=== PATIENT | female | born 1995 | race Caucasian/White ===

== ENCOUNTER 2016-06-29 05:08 | Inpatient (IN) | payer BC, OTHER ==
[~2016-06-29] VITALS: Ht 165.1 cm; Wt 84.7 kg
[~2016-06-29 05:08] MED LIST: PRAM1AER PR; Z.0.NO CURRENT MEDS
[2016-06-29 05:10] VITALS: BP 126/84; PULSE 90; RESP 20; TEMP 98.1; O2SAT 99
[2016-06-29] MEDS ORDERED: DICY10CA12 PO (05:17)
[2016-06-29] MEDS ORDERED: SODIUM CHLOR 0.9% 1000 ML INJ 1,000 ML IV SCH (05:31)
--- NOTE | 2016-06-29 05:42 | PD ---
HPI Chief Complaint: GI Complaint Time Seen by Provider: 05:24 Travel History International Travel<30 days: No Contact w/Intl Traveler<30days: No Traveled to known affect area: No History of Present Illness HPI 31-year-old female complains of abdominal pain with nausea vomiting. Patient has intermittent right upper quadrant abdominal pain with nausea vomiting for the past several months. Patient was seen by energy audit advisor in April and had gallbladder ultrasound done April 29 which showed cholelithiasis and gallbladder wall thickening typical of cholecystitis. Patient was given dicyclomine for pain. Patient had HIDA scan done at [facility] on June 13 which shows delayed visualization of the gallbladder typical of chronic cholecystitis. Patient awaiting referral to see a surgeon. Patient states that she started having severe right upper quadrant abdominal pain with nausea vomiting the past 6 hours. Patient states the pain is sharp pain localized to right upper quadrant of the abdomen. Patient denies any pain radiation. Patient denies any fever chills. Patient states that she has intermittent nausea vomiting with the pain. Patient denies any dysuria or frequency. Patient denies any vaginal discharge or bleeding. On a scale of 1- 10 the pain is a 10. PFSH Past Medical History Diminished Hearing: No Medical other: Yes (GALLSTONES ) Musculoskeletal: Yes (SCOLIOSIS) Immunizations Current: Yes Tetanus Vaccination: < 5 Years Influenza Vaccination: Yes ?: Not LMP: 06/28/16 Past Surgical History Other Surgery: Yes (SPINAL SURGERY 10/2008) Social History Alcohol Use: Yes (RARE ) Tobacco Use: No Substance Use: No Allergies-Medications (Allergen,Severity, Reaction): Coded Allergies: Latex (Verified Allergy, Unknown, 06/29/16) Penicillin (Verified Allergy, Unknown, 06/29/16) Sulfa (Verified Allergy, Unknown, 06/29/16) Reported Meds & Prescriptions Reported Meds & Active Scripts Active Reported Dicyclomine (Dicyclomine HCl) 10 Mg Cap 10 Mg PO BID Review of Systems General / Constitutional: No: Fever Eyes: No: Visual changes HENT: No: Headaches Cardiovascular: No: Chest Pain or Discomfort Respiratory: No: Shortness of Breath Gastrointestinal: Positive: Nausea, Vomiting, Abdominal Pain Genitourinary: No: Dysuria Musculoskeletal: No: Pain Skin: No Rash Neurologic: No: Weakness Psychiatric: No: Depression Endocrine: No: Polydipsia Hematologic/Lymphatic: No: Easy Bruising Physical Exam Narrative GENERAL: Well-nourished, well-developed patient. SKIN: Warm and dry. HEAD: Normocephalic. EYES: No scleral icterus. No injection or drainage. NECK: Supple, trachea midline. No JVD or lymphadenopathy. CARDIOVASCULAR: Regular rate and rhythm without murmurs, gallops, or rubs. RESPIRATORY: Breath sounds equal bilaterally. No accessory muscle use. GASTROINTESTINAL: Abdomen soft, nondistended. Patient has moderate tenderness on palpation right upper quadrant of the abdomen. No rebound tenderness. No mass. MUSCULOSKELETAL: No cyanosis, or edema. BACK: Nontender without obvious deformity. No CVA tenderness. Neurologic exam normal. Data Data Last Documented VS Vital Signs Date Time Temp Pulse Resp B/P Pulse Ox O2 Delivery O2 Flow Rate FiO2 06/29/16 05:10 98.1 90 20 126/84 99 Orders Beta Hcg (Quant/Titer) (06/29/16 05:31) Complete Blood Count With Diff (06/29/16 05:31) Comprehensive Metabolic Panel (06/29/16 05:31) Lipase (06/29/16 05:31) Prothrombin Time / Inr (Pt) (06/29/16 05:31) Act Partial Throm Time (Ptt) (06/29/16 05:31) Urinalysis - C+S If Indicated (06/29/16 05:31) Iv Access Insert/Monitor (06/29/16 05:31) Ecg Monitoring (06/29/16 05:31) Oximetry (06/29/16 05:31) Morphine Inj (Morphine Inj) (06/29/16 05:45) Ondansetron Inj (Zofran Inj) (06/29/16 05:45) Pantoprazole Inj (Protonix Inj) (06/29/16 05:45) Sodium Chlor 0.9% 1000 Ml Inj (Ns 1000 M (06/29/16 05:31) Ed Urine Pregnancytest Poc (06/29/16 05:31) Labs Laboratory Tests Test 06/29/16 05:45 White Blood Count 11.0 TH/MM3 Red Blood Count 6.37 MIL/MM3 Hemoglobin 11.9 GM/DL Hematocrit 36.4 % Mean Corpuscular Volume 57.2 FL Mean Corpuscular Hemoglobin 18.7 PG Mean Corpuscular Hemoglobin 32.7 % Concent Red Cell Distribution Width 16.2 % Platelet Count 409 TH/MM3 Mean Platelet Volume 9.1 FL Neutrophils (%) (Auto) 89.1 % Lymphocytes (%) (Auto) 7.3 % Monocytes (%) (Auto) 3.2 % Eosinophils (%) (Auto) 0.2 % Basophils (%) (Auto) 0.2 % Neutrophils # (Auto) 9.8 TH/MM3 Lymphocytes # (Auto) 0.8 TH/MM3 Monocytes # (Auto) 0.4 TH/MM3 Eosinophils # (Auto) 0.0 TH/MM3 Basophils # (Auto) 0.0 TH/MM3 CBC Comment AUTO DIFF Differential Comment AUTO DIFF CONFIRMED Tear Drop Cells 1+ Ovalocytes 1+ Prothrombin Time 11.0 SEC Prothromb Time International 1.0 RATIO Ratio Activated Partial 27.2 SEC Thromboplast Time Sodium Level 141 MEQ/L Potassium Level 3.7 MEQ/L Chloride Level 106 MEQ/L Carbon Dioxide Level 26.4 MEQ/L Anion Gap 9 MEQ/L Blood Urea Nitrogen 10 MG/DL Creatinine 0.79 MG/DL Estimat Glomerular Filtration 91 ML/MIN Rate Random Glucose 119 MG/DL Calcium Level 8.8 MG/DL Total Bilirubin 0.3 MG/DL Aspartate Amino Transf 16 U/L (AST/SGOT) Alanine Aminotransferase 26 U/L (ALT/SGPT) Alkaline Phosphatase 98 U/L Total Protein 7.9 GM/DL Albumin 3.7 GM/DL Lipase 142 U/L Human Chorionic Gonadotropin, LESS THAN 1 Quant MIU/ML MDM Medical Decision Making Medical Screen Exam Complete: Yes Emergency Medical Condition: Yes Differential Diagnosis Differential diagnosis including acute cholecystitis, cholelithiasis, pancreatitis, PUD, colitis, UTI, pyelonephritis, nephrolithiasis. Narrative Course 21-year-old female with right upper quadrant abdominal pain and nausea vomiting. Patient had gallbladder ultrasound done which shows cholelithiasis and gallbladder wall thickening. Patient had HIDA scan done 2 weeks ago which showed delayed visualization of the gallbladder. Normal saline solution 1 25 cc an hour. Morphine 2 mg IV. Zofran 4 mg IV. Protonix 40 mg IV. Diagnosis Primary Impression: Acute cholecystitis Additional Impression: Cholelithiasis Qualified Code: K80.12 - Calculus of gallbladder with acute on chronic cholecystitis without obstruction Dwayne Cho MD Jun 29, 2016 05:42
[2016-06-29] MEDS ORDERED: MORPHINE SULFATE 4 MG/ML INJ IV PUSH ONE (05:45)
[2016-06-29] MEDS ORDERED: PANTOPRAZOLE SODIUM 40 MG VIAL IVP ONE (05:45)
[2016-06-29] MEDS ORDERED: ONDANSETRON HCL 4 MG/2 ML VIAL IVP ONE (05:45)
[2016-06-29 05:54] LABS: AUTOMATED NEUTROPHIL # 9.8 TH/MM3 (1.8-7.7); BASOPHIL % 0.2 % (0.0-2.0); EOSINOPHIL % 0.2 % (0.0-4.0); HEMATOCRIT 36.4 % (35.0-46.0); LYMPH % 7.3 % (9.0-44.0); LYMPHOCYTE # 0.8 TH/MM3 (1.0-4.8); MEAN CELL VOLUME 57.2 FL (80.0-100.0); MEAN CORPUSCULAR HEMOGLOBIN 18.7 PG (27.0-34.0); MEAN CORPUSCULAR HGB CONC 32.7 % (32.0-36.0); MONO % 3.2 % (0.0-8.0); NEUT % 89.1 % (16.0-70.0); PLATELET COUNT 409 TH/MM3 (150-450); RED BLOOD COUNT 6.37 MIL/MM3 (4.00-5.30); RED CELL DISTRIBUTION WIDTH 16.2 % (11.6-17.2)
[2016-06-29 06:10] LABS: APTT (PATIENT) 27.2 SEC (24.3-30.1)
[2016-06-29 06:11] LABS: ANION GAP 9 MEQ/L (5-15); AST (GOT) 16 U/L (15-37); BICARBONATE 26.4 MEQ/L (21.0-32.0); BLOOD UREA NITROGEN 10 MG/DL (7-18); CHLORIDE 106 MEQ/L (98-107); GLOMERULAR FILTRATION RATE 91 ML/MIN (>89); POTASSIUM 3.7 MEQ/L (3.5-5.1); SODIUM (NA) 141 MEQ/L (136-145)
[2016-06-29 06:13] LABS: HEMO FLAGS AUTO DIFF
[2016-06-29 06:15] LABS: ALKALINE PHOSPHATASE 98 U/L (45-117); ALT (GPT) 26 U/L (10-53); BETA HCG QUANT LESS THAN 1 MIU/ML (0-5); TOTAL BILIRUBIN ADULT 0.3 MG/DL (0.2-1.0)
[2016-06-29 06:25] LABS: OVALOCYTES 1+ (NORMAL); TEARDROP RBCS 1+ (NORMAL)
[2016-06-29 06:26] LABS: SCAN/DIFF AUTO DIFF CONFIRMED
[2016-06-29] MEDS ORDERED: LEVOFLOXACIN 750 MG PREMIX INJ 150 ML IV ONE (07:15)
[2016-06-29 07:30] VITALS: BP 141/92; PULSE 78; RESP 14; O2SAT 100
[2016-06-29 08:00] LABS: BLOOD, URINE LARGE (NEG); COMMENT (UR) CULT NOT INDICATED; CULTURE IF INDICATED CULT NOT INDICATED; GLUCOSE,URINE NEG (NEG); KETONE, URINE 10 mg/dL (NEG); MUCUS URINE FEW /lpf (OCC); NITRITE,URINE NEG (NEG); PH, URINE 6.5 (5.0-8.5); SQUAMOUS EPITHELIAL CELL URINE 7 /hpf (0-5); URINE COLOR YELLOW (YELLW/STRAW)
[2016-06-29 09:30] VITALS: BP 120/69; PULSE 89; RESP 16; O2SAT 98
[2016-06-29] MEDS ORDERED: SODIUM CHLORIDE 0.9% FLUSH 5 ML FLUSH IV FLUSH PRN (09:30)
[2016-06-29] MEDS ORDERED: LEVOFLOXACIN 500 MG PREMIX INJ 100 ML IV SCH (09:30)
[2016-06-29] MEDS ORDERED: MORPHINE SULFATE 4 MG/ML INJ IV PRN (09:30)
[2016-06-29] MEDS ORDERED: METOCLOPRAMIDE HCL 10 MG/2 ML VIAL IV PRN (09:30)
[2016-06-29 10:39] VITALS: BP 111/83; PULSE 77; RESP 18; TEMP 99.1; O2SAT 98
[2016-06-29] MEDS ORDERED: PROPOFOL 200 MG/20 ML AMP IV ONE (11:59)
[2016-06-29] MEDS ORDERED: LACTATED RINGER'S 1000 ML INJ 1,000 ML IV ONE (11:59)
[2016-06-29] MEDS ORDERED: NEOSTIGMINE 3 MG/3 ML SYR IV ONE (11:59)
[2016-06-29] MEDS ORDERED: ONDANSETRON HCL 4 MG/2 ML VIAL IV PUSH ONE (11:59)
[2016-06-29 12:00] VITALS: BP 111/83; PULSE 77; RESP 18; TEMP 99.1; O2SAT 98
[2016-06-29] MEDS ORDERED: DICLOFENAC SODIUM 37.5 MG/ML VIAL IV PUSH ONE (12:40)
[2016-06-29] MEDS ORDERED: MIDAZOLAM HCL 2 MG/2 ML VIAL ONE (12:40)
[2016-06-29] MEDS ORDERED: fentaNYL CITRATE 250 MCG/5 ML AMP ONE (12:41)
[2016-06-29] MEDS ORDERED: ACETAMINOPHEN 1000 MG/100 ML VIAL IV ONE (12:41)
[2016-06-29] MEDS ORDERED: BUPIVACAINE/EPINEPHRINE 0.25% PF 30 ML VIAL ONE (13:36)
--- NOTE | 2016-06-29 14:25 | HHI.PR ---
cc: Guido Chávez MD Immediate Post Op Note Procedure Date: Jun 29, 2016 Pre Op Diagnosis: (1) Acute cholecystitis (2) Cholelithiasis (3) RUQ pain (4) Abnormal gallbladder ultrasound (5) Abnormal gall bladder diagnostic imaging Post Op Diagnosis: (1) Acute cholecystitis (2) Cholelithiasis (3) RUQ pain (4) Abnormal gallbladder ultrasound (5) Abnormal gall bladder diagnostic imaging Surgeon: Guido Chávez Fiberline Supervisor(s): Please refer to OR record Procedure: Laparoscopic cholecystectomy Findings: Fairly inflamed gallbladder Complications: None Specimen(s) removed: Gallbladder Anesthesia: General Drains: None IVF Patient to: PACU Patient Condition: Good Implant/Devices: SEE IMPLANT LOG (if applicable) Date/Time of Procedure: SEE SURGICAL CARE RECORD Guido Chávez MD Jun 29, 2016 14:25
[2016-06-29] MEDS ORDERED: NORC5TAB PO (14:29)
[2016-06-29] MEDS ORDERED: DO NOT ADM ANY ANTICOAGULANT DRUGS XX PRN (14:32)
[2016-06-29] MEDS ORDERED: *MEPERIDINE 25 MG INJ VIAL PERIprocedural Use ONLY ONE (14:34)
[2016-06-29 16:00] VITALS: BP 121/77; PULSE 85; RESP 17; TEMP 97.7; O2SAT 97
[2016-06-29] MEDS ORDERED: DICYCLOMINE HCL 10 MG CAP PO SCH (21:00)
[2016-06-29] MEDS ORDERED: SODIUM CHLORIDE 0.9% FLUSH 5 ML FLUSH IV FLUSH SCH (21:00)
--- NOTE | 2016-06-30 05:44 | MH ---
cc: YISSEL CHÁVEZ M.D. DATE OF ADMISSION: 06/29/2016 REASON FOR ADMISSION Right upper quadrant pain, nausea, vomiting. Ultrasound shows stones, HIDA scan which was of abnormal, all done as an outpatient. HISTORY This is a pleasant 21-year-old student who is going to [email or web address] in [place]. She had experienced some right upper quadrant pain, nausea, had an ultrasound done a few weeks back which showed inflamed gallbladder. She then saw a edge blacker who ordered a HIDA scan which was abnormal. They were not sure what was happening and then she progressively got worse and she drove to [facility] back home and came to the emergency room for medical care. Dr. Osuna called me after his evaluation and looking at an outpatient images and all her clinical condition was consistent with acute cholecystitis on top of chronic that had been going on. PAST HISTORY Negative for any chronic medical problems. ALLERGIES LATEX. PENICILLIN. SULFA. REVIEW OF SYSTEMS No chronic pulmonary or cardiac problems. She does have scoliosis. She does not take any routine medications. PHYSICAL EXAMINATION NECK: Supple. CHEST: Clear. HEART: Regular rate. ABDOMEN: Slightly obese, soft. Exquisite tenderness with Lewis's sign. No surgical scars. No masses are appreciated. She is definitely tender in the right upper quadrant. EXTREMITIES: Moves all extremities. No clubbing, cyanosis or edema. NEUROLOGIC: She is alert and oriented x 3, without focal deficits. LABORATORY DATA White count 8, H&H 11 and 36. Coags normal. Chemistry with LFTs all normal. Beta hCG negative. IMAGING STUDIES I have looked at the outpatient reports. Ultrasound done at [facility] in [place] showed inflamed gallbladder and gallstones. HIDA scan done at the [facility] here showed abnormal emptying. ASSESSMENT A 21-year-old female with signs and symptomatology and radiologic imaging consistent with biliary colic, acute cholecystitis. PLAN Laparoscopic cholecystectomy. This was explained to the patient and her family who were there and they all appear to understand. We will proceed. Yissel Chávez MD JBRYAN/FREDERICK /10:43 PM /5:36 AM
[2016-06-30] MEDS ORDERED: PANTOPRAZOLE SODIUM 40 MG VIAL IV SCH (09:00)
--- NOTE | 2016-07-03 09:21 | MP ---
cc: YISSEL CHÁVEZ M.D. DATE OF SURGERY 06/29/2016 PREOPERATIVE DIAGNOSIS Cholelithiasis, cholecystitis POSTOPERATIVE DIAGNOSIS Cholelithiasis, cholecystitis PROCEDURE Laparoscopic cholecystectomy ANESTHESIA General SURGEON Dr. Chávez INDICATIONS This is a pleasant 21-year female who had signs and symptomatology and imaging studies all consistent with biliary colic. Plans were made for above. PROCEDURE The patient was taken to the operating room, placed in the supine position. After anesthesia, her abdomen was prepped with Betadine. We made an incision just below the umbilicus. A Veress needle inserted. Saline load test performed. The abdomen was insufflated with 15 mmHg. The gallbladder was grasped superiorly and laterally identifying the cystic duct, cystic artery both of which were doubly ligated. The gallbladder was moderately inflamed. We did place two other working ports, one below the xyphoid and one in between the two previously placed ports. After dissecting out the gallbladder, we placed an EndoCatch, pulled out the umbilical incision which must be elongated because the size the gallbladder. We checked the dissection sites. There was excellent hemostasis without biliary leakage. The trocars were then removed. The irrigating solution was removed. The umbilical port sites closed with a 0 Vicryl at the fascial layer. Skin is closed with 4-0 Vicryl at all three sites. The patient tolerated the procedure well, had no immediate postop complications. MD SARA London/ALEAH /10:46 PM /9:17 AM
== END 2016-06-29 16:50 | disposition home or self-care (01) | DRG 419 ==
LOC: NEPE 05:08 → NEDA 07:16 → N07A 10:35
PROVIDERS: ADMIT Surgery; ATTEND Surgery
PROC: 0FT44ZZ Resection of Gallbladder, Percutaneous Endoscopic Approach (ICD-10-PCS; principal; 2016-06-29 13:19)
DX: K80.12 Calculus of gallbladder with acute and chronic cholecystitis without obstruction (principal); M41.9 Scoliosis, unspecified; Z88.0 Allergy status to penicillin; Z88.2 Allergy status to sulfonamides; Z91.040 Latex allergy status
CPT/HCPCS: 80053; 81001; 83690; 84702; 84703; 85025; 85610; 85730; 88304; 96361; 96374; 96375; C9113; J0131; J1130; J1956; J2175; J2250; J2270; J2405; J2710; J2765; J3010; J7030; J7120

== ENCOUNTER 2018-03-10 12:58 | Inpatient (IN) ==
[2018-03-10] MEDS ORDERED: Sod Chloride 0.9% Inj 1,000 ML IV.SIG ONE (13:18)
[2018-03-10 13:57] LABS: Baso % (Auto) 0.1 % (0.0-2.0); Eos # (Auto) 0.3 th/mm3 (0.0-0.4); Hematocrit 37.5 % (35.0-46.0); Lymph # (Auto) 1.6 th/mm3 (1.0-4.8); Lymph % (Auto) 6.2 % (9.0-44.0); Mean Corpuscular HGB Conc 32.1 % (32.0-36.0); Mean Corpuscular Hemoglobin 18.8 pg (27.0-34.0); Mean Corpuscular Volume 58.4 fL (80.0-100.0); Mean Platelet Volume 8.3 fL (7.0-11.0); Mono # (Auto) 1.8 th/mm3 (0.0-0.9); Mono % (Auto) 6.6 % (0.0-8.0); Neut % (Auto) 86.1 % (16.0-70.0); Platelet Count 527 th/mm3 (150-450); Red Blood Count 6.42 mil/mm3 (4.00-5.30); Red Cell Distribution Width 16.3 % (11.6-17.2); White Blood Count 26.7 th/mm3 (4.0-11.0)
--- NOTE | 2018-03-10 13:59 | ED ---
HPI General Chief complaint: Nausea/Vomiting/Diarrhea Stated complaint: Abd pain/Vomiting Time Seen by Provider: 03/10/18 13:14 Source: patient Mode of arrival: ambulatory Limitations: no limitations History of Present Illness HPI Narrative: The patient is 22 years old and arrives to the ER with complaint of nausea vomiting and abdominal pain. She has had abdominal pain for about 3 weeks now. It radiates to the region of left flank. She reports pain and vomiting became constant and severe this morning. She had been following with the primary doctor in [facility] and blood work was done. She is yet to be informed about the results. She denies hematuria. No similar prior episodes. No abnormal vaginal bleeding or discharge. MD complaint: Reports nausea, vomiting and abdominal pain Associated Abdominal Pain: Yes Location of pain: Reports LUQ, LLQ and left flank Severity: moderate Related Data Home Medications Medication Instructions Recorded Confirmed No Known Home Medications 03/10/18 03/10/18 Allergies Allergy/AdvReac Type Severity Reaction Status Date / Time latex Allergy Unknown UNKNOWN Unverified 03/10/18 16:52 penicillin G Allergy Unknown UNKNOWN Unverified 03/10/18 16:52 Sulfa (Sulfonamide Allergy Unknown UNKNOWN Unverified 03/10/18 16:52 Antibiotics) Review of Systems ROS: all other systems reviewed are negative PMFSH Social History Social History Substance History: No History of Abuse Second Hand Smoke Exposure: No Smoking Status: Never smoker How Often Do You Have a Drink Containing Alcohol: 2 to 4 times a month Hx Recent Travel: No [facility] within the Last 8 Weeks: No Recent Out of Country Travel within the Last 8 Weeks: No Exam Narrative Exam Narrative: GENERAL: 22-year-old female pleasant well-nourished well- developed mild to moderate distress secondary to pain SKIN: Focused skin assessment warm/dry. HEAD: Atraumatic. Normocephalic. EYES: Pupils equal and round. No scleral icterus. No injection or drainage. ENT: No nasal bleeding or discharge. Mucous membranes pink and moist. NECK: Trachea midline. No JVD. CARDIOVASCULAR: Regular rate and rhythm. No murmur appreciated. RESPIRATORY: No accessory muscle use. Clear to auscultation. Breath sounds equal bilaterally. GASTROINTESTINAL: Tenderness palpation left abdomen. No flank tenderness. Soft. MUSCULOSKELETAL: No obvious deformities. No clubbing. No cyanosis. No edema. NEUROLOGICAL: Awake and alert. No obvious cranial nerve deficits. Motor grossly within normal limits. Normal speech. PSYCHIATRIC: Appropriate mood and affect; insight and judgment normal. Course Initial Documented Vital Signs Temperature 98.2 F 03/10/18 13:02 Pulse Rate 118 H 03/10/18 13:02 Respiratory Rate 20 03/10/18 13:02 Blood Pressure 156/106 H 03/10/18 13:02 Pulse Oximetry 98 03/10/18 13:02 Last Documented Vital Signs Temperature 98.5 F 03/12/18 12:00 Pulse Rate 79 03/12/18 12:00 Respiratory Rate 16 03/12/18 12:00 Blood Pressure 120/64 03/12/18 12:00 Pulse Oximetry 97 03/12/18 12:00 Medical Decision Making MDM Narrative Medical decision making narrative: Patient has been in the ER for about 3-1/2 hours. She describes continuous pain after morphine and Dilaudid. Persistent nausea is reported after Zofran twice. Workup reveals a leukocytosis of 27,000 atypical for this patient who has had multiple normal prior white blood cell counts. WBCs in urine along with moderate leukocyte esterase could be considered cystitis. Subclinical diverticulitis may also be concerned. There was a large amount of stool on outside imaging from 2 days ago. Cipro Flagyl started. IV fluids started. Call placed to hospitalist service. Medical Screen Exam Complete: Yes Emergency Medical Condition: Yes Differential Diagnosis Differential Diagnosis: Constipation, Gastritis, Acute Cholecystitis, Biliary Colic, Pancreatitis, STEWART, Hepatitis, Bowel Obstruction, Cystitis, Mesenteric Ischemia, AAA, Appendicitis, Renal Stone/Hydronephrosis, GERD, perforated viscous Medical Records Medical records reviewed: Yes I reviewed the patient's medical records. Lab Data Lab results reviewed: Yes I reviewed the patient's lab results. Lab results narrative: LFTs essentially unremarkable Urinalysis shows occasional WBCs with moderate leukocyte esterase [id number] negative Result diagrams: 03/12/18 09:22 03/12/18 09:22 POC Results POC Urine Results Negative Lab Results 03/10/18 03/10/18 03/10/18 Range/Units 13:45 13:45 14:50 WBC 26.7 H (4.0-11.0) th/mm3 RBC 6.42 H (4.00-5.30) mil/mm3 Hgb 12.0 (11.6-15.3) gm/dL Hct 37.5 (35.0-46.0) % MCV 58.4 L (80.0-100.0) fL MCH 18.8 L (27.0-34.0) pg MCHC 32.1 (32.0-36.0) % RDW 16.3 (11.6-17.2) % Plt Count 527 H D (150-450) th/mm3 MPV 8.3 (7.0-11.0) fL Neut % (Auto) 86.1 H (16.0-70.0) % Lymph % (Auto) 6.2 L (9.0-44.0) % [place] % (Auto) 6.6 (0.0-8.0) % Eos % (Auto) 1.0 (0.0-4.0) % Baso % (Auto) 0.1 (0.0-2.0) % Neut # (Auto) 23.0 H (1.8-7.7) th/mm3 Lymph # (Auto) 1.6 (1.0-4.8) th/mm3 [place] # (Auto) 1.8 H (0.0-0.9) th/mm3 Eos # (Auto) 0.3 (0.0-0.4) th/mm3 Baso # (Auto) 0.0 (0.0-0.2) th/mm3 WBC Differential . Differential Comment Auto diff final Sodium 144 (136-145) meq/L Potassium 3.8 (3.5-5.1) meq/L Chloride 105 (98-107) meq/L Carbon Dioxide 29.7 (21.0-32.0) meq/L Anion Gap 9 (5-15) meq/L BUN 12 (7-18) mg/dL Creatinine 0.73 (0.50-1.00) mg/dL Estimated GFR Greater than 89 (>89) mL/min Random Glucose 120 H (74-106) mg/dL Calcium 8.8 (8.5-10.1) mg/dL Magnesium (1.5-2.5) mg/dL Total Bilirubin 0.8 (0.2-1.0) mg/dL Direct Bilirubin 0.2 (0.0-0.2) mg/dL Indirect Bilirubin 0.6 (0.0-0.8) mg/dL AST 31 (15-37) U/L ALT 41 (10-53) U/L Alkaline Phosphatase 109 (45-117) U/L Total Protein 8.0 (6.4-8.2) g/dL Albumin 3.9 (3.4-5.0) g/dL Lipase 106 (73-393) U/L Urine Color Yellow (Yellw/Straw) Urine Clarity Cloudy H (Clear) Urine pH 5.0 (5.0-8.5) Ur Specific [place] 1.026 (1.002-1.035) Urine Protein Negative (Neg-Trace) mg/dL Urine Glucose (UA) Negative (Negative) mg/dL Urine Ketones Negative (Negative) mg/dL Urine Occult Blood Negative (Negative) Urine Nitrate Negative (Negative) Urine Bilirubin Negative (Negative) Urine Urobilinogen Less than 2 (Less than 2) mg/dL Ur Leukocyte Esterase Moderate H (Negative) Urine RBC 3 (0-3) /hpf Urine WBC 8 H (0-5) /hpf Ur Squamous Epith Cells 5 (0-5) /hpf Calcium Oxalate Crystal Rare H (None) /hpf Amorphous Sediment Rare H (None) /hpf Urine Bacteria Occasional H (None) /hpf Hyaline Casts 1 (0-3) /lpf Urine Mucus Moderate H (Occasional) /lpf Ur Microscopic Review Not Reportable Stl C.difficile DNA Amp (Negative) St C. diff Tox Epid 027 (Negative) 03/11/18 03/11/18 03/11/18 Range/Units 01:18 06:15 06:15 WBC 12.2 H D (4.0-11.0) th/mm3 RBC 5.64 H (4.00-5.30) mil/mm3 Hgb 10.5 L (11.6-15.3) gm/dL Hct 32.8 L (35.0-46.0) % MCV 58.3 L (80.0-100.0) fL MCH 18.6 L (27.0-34.0) pg MCHC 32.0 (32.0-36.0) % RDW 15.6 (11.6-17.2) % Plt Count 398 (150-450) th/mm3 MPV 8.5 (7.0-11.0) fL Neut % (Auto) 82.3 H (16.0-70.0) % Lymph % (Auto) 9.5 (9.0-44.0) % [place] % (Auto) 7.9 (0.0-8.0) % Eos % (Auto) 0.1 (0.0-4.0) % Baso % (Auto) 0.2 (0.0-2.0) % Neut # (Auto) 10.0 H (1.8-7.7) th/mm3 Lymph # (Auto) 1.2 (1.0-4.8) th/mm3 [place] # (Auto) 1.0 H (0.0-0.9) th/mm3 Eos # (Auto) 0.0 (0.0-0.4) th/mm3 Baso # (Auto) 0.0 (0.0-0.2) th/mm3 WBC Differential . Differential Comment Auto diff final Sodium 140 (136-145) meq/L Potassium 3.3 L (3.5-5.1) meq/L Chloride 106 (98-107) meq/L Carbon Dioxide 26.8 (21.0-32.0) meq/L Anion Gap 7 (5-15) meq/L BUN 8 (7-18) mg/dL Creatinine 0.62 (0.50-1.00) mg/dL Estimated GFR Greater than 89 (>89) mL/min Random Glucose 92 (74-106) mg/dL Calcium 8.1 L (8.5-10.1) mg/dL Magnesium (1.5-2.5) mg/dL Total Bilirubin 0.9 (0.2-1.0) mg/dL Direct Bilirubin (0.0-0.2) mg/dL Indirect Bilirubin (0.0-0.8) mg/dL AST 27 (15-37) U/L ALT 36 (10-53) U/L Alkaline Phosphatase 80 (45-117) U/L Total Protein 6.6 D (6.4-8.2) g/dL Albumin 3.0 L D (3.4-5.0) g/dL Lipase 65 L (73-393) U/L Urine Color (Yellw/Straw) Urine Clarity (Clear) Urine pH (5.0-8.5) Ur Specific [place] (1.002-1.035) Urine Protein (Neg-Trace) mg/dL Urine Glucose (UA) (Negative) mg/dL Urine Ketones (Negative) mg/dL Urine Occult Blood (Negative) Urine Nitrate (Negative) Urine Bilirubin (Negative) Urine Urobilinogen (Less than 2) mg/dL Ur Leukocyte Esterase (Negative) Urine RBC (0-3) /hpf Urine WBC (0-5) /hpf Ur Squamous Epith Cells (0-5) /hpf Calcium Oxalate Crystal (None) /hpf Amorphous Sediment (None) /hpf Urine Bacteria (None) /hpf Hyaline Casts (0-3) /lpf Urine Mucus (Occasional) /lpf Ur Microscopic Review Stl C.difficile DNA Amp Negative (Negative) St C. diff Tox Epid 027 Negative (Negative) 03/11/18 03/12/18 03/12/18 Range/Units 06:15 09:22 09:22 WBC 7.6 (4.0-11.0) th/mm3 RBC 5.45 H (4.00-5.30) mil/mm3 Hgb 10.1 L (11.6-15.3) gm/dL Hct 31.7 L (35.0-46.0) % MCV 58.1 L (80.0-100.0) fL MCH 18.6 L (27.0-34.0) pg MCHC 32.0 (32.0-36.0) % RDW 15.8 (11.6-17.2) % Plt Count 365 (150-450) th/mm3 MPV 8.3 (7.0-11.0) fL Neut % (Auto) 53.3 (16.0-70.0) % Lymph % (Auto) 27.7 (9.0-44.0) % [place] % (Auto) 14.0 H (0.0-8.0) % Eos % (Auto) 4.2 H (0.0-4.0) % Baso % (Auto) 0.8 (0.0-2.0) % Neut # (Auto) 4.0 (1.8-7.7) th/mm3 Lymph # (Auto) 2.1 (1.0-4.8) th/mm3 [place] # (Auto) 1.1 H (0.0-0.9) th/mm3 Eos # (Auto) 0.3 (0.0-0.4) th/mm3 Baso # (Auto) 0.1 (0.0-0.2) th/mm3 WBC Differential . Differential Comment Auto diff final Sodium 144 (136-145) meq/L Potassium 3.4 L (3.5-5.1) meq/L Chloride 107 (98-107) meq/L Carbon Dioxide 27.9 (21.0-32.0) meq/L Anion Gap 9 (5-15) meq/L BUN 3 L (7-18) mg/dL Creatinine 0.66 (0.50-1.00) mg/dL Estimated GFR Greater than 89 (>89) mL/min Random Glucose 78 (74-106) mg/dL Calcium 8.0 L (8.5-10.1) mg/dL Magnesium 1.7 1.9 (1.5-2.5) mg/dL Total Bilirubin 0.5 (0.2-1.0) mg/dL Direct Bilirubin (0.0-0.2) mg/dL Indirect Bilirubin (0.0-0.8) mg/dL AST 24 (15-37) U/L ALT 35 (10-53) U/L Alkaline Phosphatase 73 (45-117) U/L Total Protein 6.4 (6.4-8.2) g/dL Albumin 3.0 L (3.4-5.0) g/dL Lipase (73-393) U/L Urine Color (Yellw/Straw) Urine Clarity (Clear) Urine pH (5.0-8.5) Ur Specific [place] (1.002-1.035) Urine Protein (Neg-Trace) mg/dL Urine Glucose (UA) (Negative) mg/dL Urine Ketones (Negative) mg/dL Urine Occult Blood (Negative) Urine Nitrate (Negative) Urine Bilirubin (Negative) Urine Urobilinogen (Less than 2) mg/dL Ur Leukocyte Esterase (Negative) Urine RBC (0-3) /hpf Urine WBC (0-5) /hpf Ur Squamous Epith Cells (0-5) /hpf Calcium Oxalate Crystal (None) /hpf Amorphous Sediment (None) /hpf Urine Bacteria (None) /hpf Hyaline Casts (0-3) /lpf Urine Mucus (Occasional) /lpf Ur Microscopic Review Stl C.difficile DNA Amp (Negative) St C. diff Tox Epid 027 (Negative) Imaging Data Attestation: I personally reviewed and interpreted this imaging study as follows : Radiologist's impression: Abdomen/Pelvis CT 03/10/18 14:40 CONCLUSION: 1. No acute abnormality. 2. Tiny hiatal hernia. 3. Prior cholecystectomy. Discharge Plan Discharge Disposition Patient Disposition: 30 Still Patient Physicians Team ED Provider: Zay Alarcon Primary Care Provider: Daja Rea Attending Provider: Amelie Claire Other Providers: Baylee Paulino Status ED Status: Left Department Discharge Information Discharge Date/Time: 03/10/18 22:45
[2018-03-10] MEDS ORDERED: Morphine Inj 4 MG/ML Vial IV.PUSH ONE ×3 (14:05→17:00)
[2018-03-10 14:11] LABS: Anion Gap 9 meq/L (5-15); Blood Urea Nitrogen 12 mg/dL (7-18); Calcium 8.8 mg/dL (8.5-10.1); Carbon Dioxide 29.7 meq/L (21.0-32.0); Chloride 105 meq/L (98-107); Glomerular Filtration Rate Greater Than 89 mL/min (>89); Glucose,Random 120 mg/dL (74-106); Potassium 3.8 meq/L (3.5-5.1); Sodium 144 meq/L (136-145)
[2018-03-10] MEDS ORDERED: Ciprofloxacin 400 MG/200 ML 400 MG/200 ML PIGGYBACK IV.SIG ONE (14:41)
[2018-03-10 14:50] LABS: Alanine Aminotransferase 41 U/L (10-53); Albumin 3.9 g/dL (3.4-5.0); Aspartate Aminotransferase 31 U/L (15-37); Lipase 106 U/L (73-393)
[2018-03-10 14:52] LABS: Alkaline Phosphatase 109 U/L (45-117)
[2018-03-10 15:44] LABS: Amorphous Sediment,Urine Rare /hpf; Bacteria,Urine Occasional /hpf; Bilirubin,Urine Negative (Negative); Calcium Oxalate Crystals,Urine Rare /hpf; Clarity,Urine Cloudy (Clear); Color,Urine Yellow (Yellw/Straw); Glucose,Urine (UA) Negative (Negative); Hyaline Casts,Urine 1 /lpf (0-3); Leukocyte Esterase,Urine Moderate (Negative); Mucus,Urine Moderate /lpf (Occasional); Nitrite,Urine Negative (Negative); Specific Gravity,Urine 1.026 (1.002-1.035); Squamous Epithelial Cell,Urine 5 /hpf (0-5)
[2018-03-10] MEDS: HYDROmorphone PF Inj 2 MG/ML Vial IV.PUSH ONE ×2 (15:46→16:01)
--- NOTE | 2018-03-10 15:52 | CT ---
EXAM DATE: 03/10/2018 2:49 PM EDT AGE/SEX: 22 years / Female INDICATIONS: Left lower quadrant abdominal pain radiating to back for four weeks. Nausea, vomiting, and diarrhea since this morning. CLINICAL DATA: This is the patient's initial encounter. Patient reports that signs and symptoms have been present for 1 day and indicates a pain score of 8/10. MEDICAL/SURGICAL HISTORY: None. . Spine surgery. ORAL CONTRAST: No oral contrast ingested. RADIATION DOSE: 11.22 CTDI (mGy) COMPARISON: POI, CT ABDOMEN AND PELVIS W AND W/O CONTRAST, 03/08/2018. . TECHNIQUE: Multiple contiguous axial images were obtained through the abdomen and pelvis following b olus infusion of 90 ml Omnipaque 350 (iohexol) nonionic water-soluble contrast as a single exam dos e. No oral contrast ingested. Using automated exposure control and adjustment of the mA and/or kV ac cording to patient size, radiation dose was kept as low as reasonably achievable to obtain optimal di agnostic quality images. DICOM format image data is available electronically for review and comparis on. FINDINGS: Lower Lungs: Tiny hiatal hernia. The visualized lower lungs are clear. Liver: The liver has a homogeneous density without space-occupying lesion. There is no dilation of th e biliary tree. Gallbladder is surgically absent. Spleen: Homogeneous density without enlargement. Pancreas: Unremarkable without mass or calcification. Kidneys: Normal in size and shape. No evidence of mass or hydronephrosis. Adrenal Glands: Unremarkable. Aorta: The aorta and proximal iliac vessels are grossly unremarkable without aneurysmal dilation. Bowel/Mesentery: The bowel loops are grossly unremarkable. The cecum and sigmoid colon have a normal configuration. Abdominal Wall: Intact. Retroperitoneum: No evidence of adenopathy in the retrocrural, para-aortic, or deep pelvic regions. Bladder: Contours are smooth. Reproductive Organs: No abnormal masses or calcifications seen. Inguinal: The inguinal region is unremarkable without evidence of adenopathy. Bony Structures: A scoliotic spine with orthopedic hardware.. CONCLUSION: 1. No acute abnormality. 2. Tiny hiatal hernia. 3. Prior cholecystectomy. Electronically signed by: Jovi Samson MD 03/10/2018 3:51 PM EDT
[2018-03-10] MEDS ORDERED: Bisacodyl 10 MG Supp RECTAL PRN (17:17)
[2018-03-10] MEDS ORDERED: Acetaminophen 325 MG Tablet PO PRN (17:17)
--- NOTE | 2018-03-10 17:37 | P.HPIM ---
History of Present Illness Service: [facility]/HEP Primary Care Physician: Daja Rea Chief Complaint: NAUSEA AND VOMITING AND DIARRHEA History of Present Illness: Patient is a 22-year-old female who presented with chief complaint of abdominal pain and vomiting and diarrhea. Patient also had some nausea and vomiting and some abdominal pain. She has been having abdominal pain on and off for the past 3-4 weeks. It usually radiates to the region of her left flank. She reports some pain and vomiting became constant severe this morning. She had been scheduled to follow-up with her primary care physician in [facility] regarding imaging and blood work that was done. She denies any hematuria. She denies any prior episodes of this denies any abnormal vaginal bleeding or discharge. Had the nausea and vomiting and abdominal pain. Had pain in the left upper quadrant left lower quadrant left flank. The been moderate severity. Requiring pain medications and antiemetics Patient will be placed into observation. Found to have a leukocytosis We will send stools for C. 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 Review of Systems All other systems reviewed negative except as stated in [facility] - History History Provided By: Patient - Medical History Medical History: Medical History (Last Reviewed 03/10/18 @ 17:28 by Nelson Zhou DO) Anxiety Depression Scoliosis - Surgical History Surgical History: Surgical History (Last Reviewed 03/10/18 @ 17:28 by Nelson Zhou DO) Hx of cholecystectomy - Family History Family History: Family History (Last Reviewed 03/10/18 @ 17:28 by Nelson Zhou DO) Other Family history of hypertension - Social History I have reviewed the patient's Social History: Yes - Tobacco History Second Hand Smoke Exposure: No Tobacco Use In Past 30 Days: No Smoking Status: Never smoker - Alcohol History How Often Do You Have a Drink Containing Alcohol: 2 to 4 times a month - Substance Use History Substance History: No History of Abuse - Travel History History of Recent Travel: No Recent Travel in the [place] Within the Last 8 Weeks: No Recent Travel Out of the Country Within the Last 8 Weeks: No - Immunization History Tetanus Immunization: <5 Years Medications and Allergies Active Medications: Active Medications Acetaminophen (Tylenol) 650 mg PO Q4H PRN PRN Reason: Temp > 100.4 Al Hydroxide/Mg Hydroxide (Milk Of Magnesia Liq) 30 ml PO Q12H PRN PRN Reason: Mild Constipation Bisacodyl (Dulcolax Supp) 10 mg RECTAL DAILY PRN PRN Reason: SEVERE CONSITIPATION Famotidine (Pepcid Pf Inj) 20 mg 0.25 mg/kg (20 mg) IV.PUSH Q12HR ORION Potassium Chloride/Dextrose/Sod Cl (D5w/1/2ns + Kcl 20 Meq Inj) 1,000 mls @ 100 mls/hr IV.CONT .Q10H ORION Ciprofloxacin/Dextrose (Cipro 400 Mg/200 Ml Inj) 400 mg in 200 mls @ 200 mls/ hr IV.SIG Q12H ORION Metronidazole/Sodium Chloride (Flagyl 500 Mg Inj) 100 mls @ 100 mls/hr IV.SIG Q8H ORION Lactulose (Lactulose Liq) 30 ml PO DAILY PRN PRN Reason: SEVERE CONSITIPATION Metoclopramide HCl (Reglan Inj) 10 mg IV.PUSH Q8H PRN; Protocol PRN Reason: NAUSEA OR VOMITING Ondansetron HCl (Zofran Inj) 4 mg IV.PUSH Q4H PRN PRN Reason: NAUSEA OR VOMITING Senna/Docusate Sodium (Elva-Colace) 1 tab PO BID ORION Sennosides (Senokot) 17.2 mg PO Q12H PRN PRN Reason: Moderate Constipation Sodium Chloride (Ns Flush) 2 ml IV.FLUSH PRN PRN PRN Reason: FLUSH AFTER USING IV ACCESS Allergies Allergy/AdvReac Type Severity Reaction Status Date / Time latex Allergy Unknown UNKNOWN Unverified 03/10/18 16:52 penicillin G Allergy Unknown UNKNOWN Unverified 03/10/18 16:52 Sulfa (Sulfonamide Allergy Unknown UNKNOWN Unverified 03/10/18 16:52 Antibiotics) Home Medications Medication Instructions Recorded Confirmed Type No Known Home Medications 03/10/18 03/10/18 History Exam Vital signs: Vital Signs 03/10/18 13:02 03/10/18 16:00 Temperature 98.2 F Pulse Rate 118 H 90 Respiratory Rate 20 18 Blood Pressure 156/106 H 130/71 Pulse Oximetry 98 97 Intake & Output 03/09/18 03/10/18 03/10/18 18:59 06:59 18:59 Intake Total 300 / 300 Balance 300 / 300 Weight 79.379 kg Intake: IV 300 / 300 Cipro 400 MG/200 ML Inj 400 mg 200 / 200 In 200 ml @ 200 mls/hr IV.SIG ONCE ONE Rx#:[id number] Flagyl 500 MG Inj 100 ML @ 100 100 / 100 mls/hr IV.SIG ONCE ONE Rx#: [id number] Narrative: GENERAL: Awake alert and oriented x3 talkative and cooperative appears to be in some mild distress but is already been given morphine and Dilaudid. SKIN: Warm and dry. HEAD: Atraumatic. Normocephalic. EYES: Pupils equal and round. No scleral icterus. No injection or drainage. EOMI ENT: No nasal bleeding or discharge. Mucous membranes pink and moist. Tongue is midline NECK: Trachea midline. No JVD. Supple CARDIOVASCULAR: Regular rate and rhythm. S1-S2 no S3 or S4 RESPIRATORY: No accessory muscle use. Clear to auscultation. Breath sounds equal bilaterally. GASTROINTESTINAL: Abdomen soft, non-tender, nondistended. Hepatic and splenic margins not palpable. Diffusely tender left quadrant and left flank area MUSCULOSKELETAL: Extremities without clubbing, cyanosis, or edema. No obvious deformities. NEUROLOGICAL: Awake and alert. No obvious cranial nerve deficits. Motor grossly within normal limits. Five out of 5 muscle strength in the arms and legs. Normal speech. PSYCHIATRIC: Appropriate mood and affect; insight and judgment normal. Left-sided CVA tenderness mild to moderate Results - Labs CBC & Chem 7: 03/10/18 13:45 03/10/18 13:45 Labs: Short CBC 03/10/18 Range/Units 13:45 WBC 26.7 H (4.0-11.0) th/mm3 Hgb 12.0 (11.6-15.3) gm/dL Hct 37.5 (35.0-46.0) % Plt Count 527 H D (150-450) th/mm3 BMP 03/10/18 13:45 Sodium 144 Potassium 3.8 Chloride 105 Carbon Dioxide 29.7 BUN 12 Creatinine 0.73 Calcium 8.8 Liver Function 03/10/18 Range/Units 13:45 Total Bilirubin 0.8 (0.2-1.0) mg/dL Direct Bilirubin 0.2 (0.0-0.2) mg/dL AST 31 (15-37) U/L ALT 41 (10-53) U/L Alkaline Phosphatase 109 (45-117) U/L Albumin 3.9 (3.4-5.0) g/dL Urine 03/10/18 Range/Units 14:50 Urine Color Yellow (Yellw/Straw) Urine Clarity Cloudy H (Clear) Urine pH 5.0 (5.0-8.5) Ur Specific [place] 1.026 (1.002-1.035) Urine Protein Negative (Neg-Trace) mg/dL Urine Glucose (UA) Negative (Negative) mg/dL - Imaging Impressions Abdomen/Pelvis CT 03/10/18 14:40 CONCLUSION: 1. No acute abnormality. 2. Tiny hiatal hernia. 3. Prior cholecystectomy. Caprini VTE Risk Assessment Caprini VTE Risk Assessment: No/Low Risk (score <= 1) Caprini Risk Assessment Model: Point Value = 1 Point Value = 2 Point Value = 3 Point Value = 5 Age 41-60 Minor surgery BMI > 25 kg/m2 Swollen legs Varicose veins or History of unexplained or recurrent spontaneous Oral contraceptives or hormone replacement Sepsis (< 1 month) Serious lung disease, including pneumonia (< 1 month) Abnormal pulmonary function Acute myocardial infarction Congestive heart failure (< 1 month) History of inflammatory bowel disease Medical patient at bed rest Age 61-74 Arthroscopic surgery Major open surgery (> 45 min) Laparoscopic surgery (> 45 min) Malignancy Confined to bed (> 72 hours) Immobilizing plaster cast Central venous access Age >= 75 History of VTE Family history of VTE Factor V Leiden Prothrombin [id number] Lupus anticoagulant Anticardiolipin antibodies Elevated serum homocysteine Heparin-induced thrombocytopenia Other congenital or acquired thrombophilia Stroke (< 1 month) Elective arthroplasty Hip, pelvis, or leg fracture Acute spinal cord injury (< 1 month) Prophylaxis Regimen: Total Risk Factor Score Risk Level Prophylaxis Regimen 0-1 Low Early ambulation 2 Moderate Order ONE of the following: *Sequential Compression Device (SCD) *Heparin 5000 units SQ BID 3-4 Higher Order ONE of the following medications: *Heparin 5000 units SQ TID *Enoxaparin/Lovenox 40 mg SQ daily (WT < 150 kg, CrCl > 30 mL/min) *Enoxaparin/Lovenox 30 mg SQ daily (WT < 150 kg, CrCl > 10-29 mL/min) *Enoxaparin/Lovenox 30 mg SQ BID (WT < 150 kg, CrCl > 30 mL/min) AND/OR *Sequential Compression Device (SCD) 5 or more Highest Order ONE of the following medications: *Heparin 5000 units SQ TID (Preferred with Epidurals) *Enoxaparin/Lovenox 40 mg SQ daily (WT < 150 kg, CrCl > 30 mL/min) *Enoxaparin/Lovenox 30 mg SQ daily (WT < 150 kg, CrCl > 10-29 mL/min) *Enoxaparin/Lovenox 30 mg SQ BID (WT < 150 kg, CrCl > 30 mL/min) AND *Sequential Compression Device (SCD) Assessment and Plan - Plan Abdominal pain with left-sided flank pain. Leukocytosis rule out C. difficile toxin colitis and will get stool for cultures if she is able to offer a stool sample Possible UTI Possible subclinical diverticulitis Nausea and vomiting Possible severe gastroenteritis We will continue on Flagyl and Cipro due to penicillin allergy Will add oral vancomycin 500 mg p.o. 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
[2018-03-10] MEDS: KCL 20 mEq/D5W/NaCl 0.45% Inj 1,000 ML IV.CONT SCH (18:14)
[2018-03-10] MEDS: Famotidine PF Inj 20 MG/2 ML Vial IV.PUSH SCH (18:43)
[2018-03-10] MEDS: Senna/Docusate Sodium 8.6/50 MG Tablet PO SCH (21:37)
[2018-03-11] MEDS: Ciprofloxacin 400 MG/200 ML 400 MG/200 ML PIGGYBACK IV.SIG SCH ×2 (01:12→13:47)
[2018-03-11] MEDS: KCL 20 mEq/D5W/NaCl 0.45% Inj 1,000 ML IV.CONT SCH ×3 (03:31→16:52)
[2018-03-11 07:31] LABS: Baso % (Auto) 0.2 % (0.0-2.0); Eos % (Auto) 0.1 % (0.0-4.0); Hematocrit 32.8 % (35.0-46.0); Hemoglobin 10.5 gm/dL (11.6-15.3); Lymph # (Auto) 1.2 th/mm3 (1.0-4.8); Lymph % (Auto) 9.5 % (9.0-44.0); Mean Corpuscular Hemoglobin 18.6 pg (27.0-34.0); Mean Corpuscular Volume 58.3 fL (80.0-100.0); Mean Platelet Volume 8.5 fL (7.0-11.0); Mono % (Auto) 7.9 % (0.0-8.0); Neut % (Auto) 82.3 % (16.0-70.0); Platelet Count 398 th/mm3 (150-450); Red Blood Count 5.64 mil/mm3 (4.00-5.30); Red Cell Distribution Width 15.6 % (11.6-17.2); White Blood Count 12.2 th/mm3 (4.0-11.0)
[2018-03-11 08:09] LABS: Alanine Aminotransferase 36 U/L (10-53); Alkaline Phosphatase 80 U/L (45-117); Anion Gap 7 meq/L (5-15); Aspartate Aminotransferase 27 U/L (15-37); Blood Urea Nitrogen 8 mg/dL (7-18); Calcium 8.1 mg/dL (8.5-10.1); Carbon Dioxide 26.8 meq/L (21.0-32.0); Chloride 106 meq/L (98-107); Glomerular Filtration Rate Greater Than 89 mL/min (>89); Glucose,Random 92 mg/dL (74-106); Lipase 65 U/L (73-393); Potassium 3.3 meq/L (3.5-5.1); Sodium 140 meq/L (136-145); Total Protein 6.6 g/dL (6.4-8.2)
[2018-03-11] MEDS: Senna/Docusate Sodium 8.6/50 MG Tablet PO SCH ×2 (08:19→20:50)
[2018-03-11] MEDS: Famotidine PF Inj 20 MG/2 ML Vial IV.PUSH SCH ×2 (08:19→20:50)
[2018-03-11] MEDS ORDERED: Sod Chloride 0.9% Inj 1,000 ML IV.SIG ONE (08:47)
--- NOTE | 2018-03-11 09:27 | P.CONGI ---
History of Present Illness Consult date: 03/11/18 Consult reason: Diarrhea, nausea, vomiting, abdominal pain Chief complaint: Gastroenteritis History of Present Illness: This is a 22-year-old female with past medical history significant for scoliosis status post surgery and history of cholecystectomy. Patient presented to the emergency department yesterday with complaints of ongoing nausea, vomiting, abdominal pain and diarrhea for four weeks. Patient states that nausea was initially intermittent mostly after meals and has progressively become constant. States multiple episodes of emesis. Denies any hematemesis or coffee-ground emesis. Patient also complaining of diarrhea for the past 4 weeks, states she is having multiple episodes a day. Complaints of fecal urgency and last night had an episode of fecal incontinence. She does report noticing some bright red blood mixed in with her stool and on the toilet paper when she wipes, states that she has a known hemorrhoid. Denies any melena. Complains of abdominal pain, initially began in the left lower quadrant about 4 weeks ago. States that pain is constant and now radiates to her entire abdomen. Describes the pain as sharp and aching. States everything makes it worse even a few sips of water. Has tried Aleve and Advil at home with no relief in symptoms. Patient denies any recent unintentional weight loss. Denies any family history significant for Crohn's disease or ulcerative colitis. Patient does report that she had seen a GI doctor in [place] a little over a year ago and was diagnosed with IBS, patient later found out that she needed a cholecystectomy and since having that procedure a year ago states that GI symptoms had completely resolved up until a month ago. Patient denies previous colonoscopy or EGD. She denies any sick contacts, ingestion of suspicious foods, recent travel. Patient denies any fevers at home but was febrile on admission with leukocytosis. Patient denies any illicit drug use and smoking. Does report social EtOH. <Concetta Hernandez - Last Filed: 03/11/18 09:15> Review of Systems Constitutional: Reports fever(s), Denies weight loss Gastrointestinal: Reports abdominal pain, Reports bright, red blood in stools, Reports incontinent of stools, Reports loose stools, Reports nausea, Reports vomiting, Denies black, tarry stools, Denies vomiting blood <Concetta Hernandez - Last Filed: 03/11/18 09:15> PMFSH - History History Provided By: Patient - Medical History Medical History: Medical History (Last Reviewed 03/10/18 @ 17:28 by Nelson Zhou DO) Anxiety Depression Scoliosis - Surgical History Surgical History: Surgical History (Last Reviewed 03/10/18 @ 17:28 by Nelson Zhou DO) Hx of cholecystectomy - Family History Family History: Family History (Last Reviewed 03/10/18 @ 17:28 by Nelson Zhou DO) Other Family history of hypertension - Tobacco History Second Hand Smoke Exposure: No Tobacco Use In Past 30 Days: No Smoking Status: Never smoker - Alcohol History How Often Do You Have a Drink Containing Alcohol: 2 to 4 times a month - Substance Use History Substance History: No History of Abuse - Travel History History of Recent Travel: No Recent Travel in the [place] Within the Last 8 Weeks: No Recent Travel Out of the Country Within the Last 8 Weeks: No - Immunization History Tetanus Immunization: <5 Years <Concetta Hernandez - Last Filed: 03/11/18 09:15> - Medical History Medical History: Medical History (Last Reviewed 03/10/18 @ 17:28 by Nelson Zhou DO) Anxiety Depression Scoliosis - Surgical History Surgical History: Surgical History (Last Reviewed 03/10/18 @ 17:28 by Nelson Zhou DO) Hx of cholecystectomy - Family History Family History: Family History (Last Reviewed 03/10/18 @ 17:28 by Nelson Zhou DO) Other Family history of hypertension <Baylee Paulino - Last Filed: 03/11/18 16:42> Medications and Allergies Active Medications: Active Medications Acetaminophen (Tylenol) 650 mg PO Q4H PRN PRN Reason: Temp > 100.4 Al Hydroxide/Mg Hydroxide (Milk Of Magnesia Liq) 30 ml PO Q12H PRN PRN Reason: Mild Constipation Bisacodyl (Dulcolax Supp) 10 mg RECTAL DAILY PRN PRN Reason: SEVERE CONSITIPATION Famotidine (Pepcid Pf Inj) 20 mg 0.25 mg/kg (20 mg) IV.PUSH Q12HR [facility] Last Admin: 03/11/18 08:19 Dose: 20 mg Potassium Chloride/Dextrose/Sod Cl (D5w/1/2ns + Kcl 20 Meq Inj) 1,000 mls @ 100 mls/hr IV.CONT .Q10H [facility] Last Admin: 03/11/18 03:31 Dose: 100 mls/hr Ciprofloxacin/Dextrose (Cipro 400 Mg/200 Ml Inj) 400 mg in 200 mls @ 200 mls/ hr IV.SIG Q12H [facility] Last Infusion: 03/11/18 02:46 Dose: Infused Metronidazole/Sodium Chloride (Flagyl 500 Mg Inj) 100 mls @ 100 mls/hr IV.SIG Q8H [facility] Last Infusion: 03/11/18 07:11 Dose: Infused Sodium Chloride (Ns Inj) 1,000 mls @ 0 mls/hr IV.SIG BOLUS ONE Stop: 03/11/18 08:48 Potassium Chloride (Kcl 10 Meq Premix Inj) 10 meq in 100 mls @ 100 mls/hr IV.SIG Q1H [facility] Stop: 03/11/18 10:51 Lactulose (Lactulose Liq) 30 ml PO DAILY PRN PRN Reason: SEVERE CONSITIPATION Metoclopramide HCl (Reglan Inj) 10 mg IV.PUSH Q8H PRN; Protocol PRN Reason: NAUSEA OR VOMITING Last Admin: 03/11/18 01:11 Dose: 10 mg Ondansetron HCl (Zofran Inj) 4 mg IV.PUSH Q4H PRN PRN Reason: NAUSEA OR VOMITING Last Admin: 03/11/18 06:09 Dose: 4 mg Senna/Docusate Sodium (Elva-Colace) 1 tab PO BID [facility] Last Admin: 03/11/18 08:19 Dose: 1 tab Sennosides (Senokot) 17.2 mg PO Q12H PRN PRN Reason: Moderate Constipation Sodium Chloride (Ns Flush) 2 ml IV.FLUSH PRN PRN PRN Reason: FLUSH AFTER USING IV ACCESS Vancomycin HCl (Vancomycin Po) 500 mg PO QID [facility] Last Admin: 03/11/18 08:19 Dose: 500 mg <Concetta Hernandez - Last Filed: 03/11/18 09:15> Active Medications: Active Medications Acetaminophen (Tylenol) 650 mg PO Q4H PRN PRN Reason: Temp > 100.4 Last Admin: 03/11/18 09:29 Dose: 650 mg Hydrocodone Bitart/Acetaminophen ([place] 10/325) 1 tab PO Q4H PRN PRN Reason: PAIN SCALE 6 TO 10 Last Admin: 03/11/18 12:29 Dose: 1 tab Hydrocodone Bitart/Acetaminophen ([place] 5/325) 1 tab PO Q4H PRN PRN Reason: PAIN SCALE 3 TO 5 Al Hydroxide/Mg Hydroxide (Milk Of Magnesia Liq) 30 ml PO Q12H PRN PRN Reason: Mild Constipation Bisacodyl (Dulcolax Supp) 10 mg RECTAL DAILY PRN PRN Reason: SEVERE CONSITIPATION Famotidine (Pepcid Pf Inj) 20 mg 0.25 mg/kg (20 mg) IV.PUSH Q12HR [facility] Last Admin: 03/11/18 08:19 Dose: 20 mg Potassium Chloride/Dextrose/Sod Cl (D5w/1/2ns + Kcl 20 Meq Inj) 1,000 mls @ 100 mls/hr IV.CONT .Q10H [facility] Last Infusion: 03/11/18 13:40 Dose: Infused Ciprofloxacin/Dextrose (Cipro 400 Mg/200 Ml Inj) 400 mg in 200 mls @ 200 mls/ hr IV.SIG Q12H [facility] Last Infusion: 03/11/18 14:57 Dose: Infused Metronidazole/Sodium Chloride (Flagyl 500 Mg Inj) 100 mls @ 100 mls/hr IV.SIG Q8H [facility] Last Infusion: 03/11/18 15:57 Dose: Infused Lactulose (Lactulose Liq) 30 ml PO DAILY PRN PRN Reason: SEVERE CONSITIPATION Magnesium Citrate (Citroma Liq) 300 ml PO ONCE ONE Stop: 03/11/18 18:01 Metoclopramide HCl (Reglan Inj) 10 mg IV.PUSH Q8H PRN; Protocol PRN Reason: NAUSEA OR VOMITING Last Admin: 03/11/18 09:28 Dose: 10 mg Morphine Sulfate (Morphine Inj) 4 mg IV.PUSH Q3H PRN PRN Reason: PAIN 6-10;IF UNABLE TO TAKE PO Naloxone HCl (Narcan Inj) 0.4 mg IV.PUSH UNSCH PRN PRN Reason: SEE LABEL COMMENTS Ondansetron HCl (Zofran Inj) 4 mg IV.PUSH Q4H PRN PRN Reason: NAUSEA OR VOMITING Last Admin: 03/11/18 06:09 Dose: 4 mg Senna/Docusate Sodium (Elva-Colace) 1 tab PO BID [facility] Last Admin: 03/11/18 08:19 Dose: 1 tab Sennosides (Senokot) 17.2 mg PO Q12H PRN PRN Reason: Moderate Constipation Sodium Chloride (Ns Flush) 2 ml IV.FLUSH PRN PRN PRN Reason: FLUSH AFTER USING IV ACCESS <Baylee Paulino - Last Filed: 03/11/18 16:42> Allergies Allergy/AdvReac Type Severity Reaction Status Date / Time latex Allergy Unknown UNKNOWN Unverified 03/10/18 16:52 penicillin G Allergy Unknown UNKNOWN Unverified 03/10/18 16:52 Sulfa (Sulfonamide Allergy Unknown UNKNOWN Unverified 03/10/18 16:52 Antibiotics) Home Medications Medication Instructions Recorded Confirmed Type No Known Home Medications 03/10/18 03/10/18 History Exam Vital signs: Vital Signs 03/10/18 13:02 03/10/18 16:00 03/10/18 18:16 Temperature 98.2 F Pulse Rate 118 H 90 97 H Respiratory Rate 20 18 20 Blood Pressure 156/106 H 130/71 115/62 Pulse Oximetry 98 97 97 03/10/18 20:00 03/10/18 21:59 03/10/18 22:45 Temperature Pulse Rate 105 H 107 H Respiratory Rate 16 16 Blood Pressure 110/76 Pulse Oximetry 98 03/10/18 23:59 03/11/18 04:00 03/11/18 08:06 Temperature 99.8 F H 98.2 F 99.3 F Pulse Rate 120 H 112 H 114 H Respiratory Rate 19 18 20 Blood Pressure 123/70 87/39 L 98/50 L Pulse Oximetry 98 98 97 Intake & Output 03/10/18 03/11/18 03/11/18 18:59 06:59 18:59 Intake Total 1300 / 1300 1300 / 1300 100 / 100 Balance 1300 / 1300 1300 / 1300 100 / 100 Weight 79.379 kg 79.379 kg Intake: IV 1300 / 1300 1300 / 1300 100 / 100 D5W/1/2NS + KCL 20 mEq Inj 1, 1000 / 1000 000 ML @ 100 mls/hr IV.CONT . Q10H [facility] Rx#:[id number] Cipro 400 MG/200 ML Inj 400 mg 200 / 200 200 / 200 In 200 ml @ 200 mls/hr IV.SIG Q12H [facility] Rx#:[id number] Flagyl 500 MG Inj 100 ML @ 100 100 / 100 100 / 100 100 / 100 mls/hr IV.SIG Q8H [facility] Rx#: [id number] Other: Date of Last Bowel Movement 03/10/18 Weight On Admission 79.379 kg - Constitutional no acute distress, diaphoretic - Routine HEENT Exam Head: Present: normocephalic, atraumatic - Routine Respiratory Exam Absent: accessory muscle use - Routine Cardiovascular Exam Present: RRR - Routine Abdominal Exam Present: soft, normoactive bowel sounds, tenderness (diffuse tenderness ). Absent: distended - Routine Skin Exam Present: dry, warm - Routine Neurological Exam Present: alert, oriented X3 <Concetta Hernandez - Last Filed: 03/11/18 09:15> Vital signs: Vital Signs 03/10/18 18:16 03/10/18 20:00 03/10/18 21:59 Temperature Pulse Rate 97 H 105 H 107 H Respiratory Rate 20 16 Blood Pressure 115/62 110/76 Pulse Oximetry 97 98 03/10/18 22:45 03/10/18 23:59 03/11/18 04:00 Temperature 99.8 F H 98.2 F Pulse Rate 120 H 112 H Respiratory Rate 16 19 18 Blood Pressure 123/70 87/39 L Pulse Oximetry 98 98 03/11/18 08:06 03/11/18 10:53 Temperature 99.3 F 98.3 F Pulse Rate 114 H 111 H Respiratory Rate 20 18 Blood Pressure 98/50 L 119/82 Pulse Oximetry 97 99 Intake & Output 03/10/18 03/11/18 03/11/18 18:59 06:59 18:59 Intake Total 1300 / 1300 1300 / 1300 2600 / 2600 Balance 1300 / 1300 1300 / 1300 2600 / 2600 Weight 79.379 kg 79.379 kg Intake: IV 1300 / 1300 1300 / 1300 2600 / 2600 D5W/1/2NS + KCL 20 mEq Inj 1, 1000 / 1000 1000 / 1000 000 ML @ 100 mls/hr IV.CONT . Q10H [facility] Rx#:[id number] Cipro 400 MG/200 ML Inj 400 mg 200 / 200 200 / 200 200 / 200 In 200 ml @ 200 mls/hr IV.SIG Q12H [facility] Rx#:[id number] KCl 10 mEq Premix Inj 10 meq In 200 / 200 100 ml @ 100 mls/hr IV.SIG Q1H [facility] Rx#:[id number] NS Inj 1,000 ML @ Wide Open IV. 1000 / 1000 SIG BOLUS ONE Rx#:[id number] Flagyl 500 MG Inj 100 ML @ 100 100 / 100 100 / 100 200 / 200 mls/hr IV.SIG Q8H [facility] Rx#: [id number] Other: Date of Last Bowel Movement 03/10/18 Weight On Admission 79.379 kg <Baylee Paulino - Last Filed: 03/11/18 16:42> Results - Labs CBC & Chem 7: 03/11/18 06:15 03/11/18 06:15 Labs: Laboratory Results - last 24 hr 03/10/18 03/10/18 03/10/18 13:45 13:45 14:50 WBC 26.7 H RBC 6.42 H Hgb 12.0 Hct 37.5 MCV 58.4 L MCH 18.8 L MCHC 32.1 RDW 16.3 Plt Count 527 H D MPV 8.3 Neut % (Auto) 86.1 H Lymph % (Auto) 6.2 L Coles % (Auto) 6.6 Eos % (Auto) 1.0 Baso % (Auto) 0.1 Neut # (Auto) 23.0 H Lymph # (Auto) 1.6 Coles # (Auto) 1.8 H Eos # (Auto) 0.3 Baso # (Auto) 0.0 WBC Differential . Differential Comment Auto diff final Sodium 144 Potassium 3.8 Chloride 105 Carbon Dioxide 29.7 Anion Gap 9 BUN 12 Creatinine 0.73 Estimated GFR Greater than 89 Random Glucose 120 H Calcium 8.8 Magnesium Total Bilirubin 0.8 Direct Bilirubin 0.2 Indirect Bilirubin 0.6 AST 31 ALT 41 Alkaline Phosphatase 109 Total Protein 8.0 Albumin 3.9 Lipase 106 Urine Color Yellow Urine Clarity Cloudy H Urine pH 5.0 Ur Specific Marshall 1.026 Urine Protein Negative Urine Glucose (UA) Negative Urine Ketones Negative Urine Occult Blood Negative Urine Nitrate Negative Urine Bilirubin Negative Urine Urobilinogen Less than 2 Ur Leukocyte Esterase Moderate H Urine RBC 3 Urine WBC 8 H Ur Squamous Epith Cells 5 Calcium Oxalate Crystal Rare H Amorphous Sediment Rare H Urine Bacteria Occasional H Hyaline Casts 1 Urine Mucus Moderate H Ur Microscopic Review Not Reportable Stl C.difficile DNA Amp St C. diff Tox Epid 027 03/11/18 03/11/1803/11/18 01:18 06:15 06:15 WBC 12.2 H D RBC 5.64 H Hgb 10.5 L Hct 32.8 L MCV 58.3 L MCH 18.6 L MCHC 32.0 RDW 15.6 Plt Count 398 MPV 8.5 Neut % (Auto) 82.3 H Lymph % (Auto) 9.5 Coles % (Auto) 7.9 Eos % (Auto) 0.1 Baso % (Auto) 0.2 Neut # (Auto) 10.0 H Lymph # (Auto) 1.2 Coles # (Auto) 1.0 H Eos # (Auto) 0.0 Baso # (Auto) 0.0 WBC Differential . Differential Comment Auto diff final Sodium 140 Potassium 3.3 L Chloride 106 Carbon Dioxide 26.8 Anion Gap 7 BUN 8 Creatinine 0.62 Estimated GFR Greater than 89 Random Glucose 92 Calcium 8.1 L Magnesium Total Bilirubin 0.9 Direct Bilirubin Indirect Bilirubin AST 27 ALT 36 Alkaline Phosphatase 80 Total Protein 6.6 D Albumin 3.0 L D Lipase 65 L Urine Color Urine Clarity Urine pH Ur Specific Marshall Urine Protein Urine Glucose (UA) Urine Ketones Urine Occult Blood Urine Nitrate Urine Bilirubin Urine Urobilinogen Ur Leukocyte Esterase Urine RBC Urine WBC Ur Squamous Epith Cells Calcium Oxalate Crystal Amorphous Sediment Urine Bacteria Hyaline Casts Urine Mucus Ur Microscopic Review Stl C.difficile DNA Amp Negative St C. diff Tox Epid 027 Negative 03/11/18 06:15 WBC RBC Hgb Hct MCV MCH MCHC RDW Plt Count MPV Neut % (Auto) Lymph % (Auto) Coles % (Auto) Eos % (Auto) Baso % (Auto) Neut # (Auto) Lymph # (Auto) Coles # (Auto) Eos # (Auto) Baso # (Auto) WBC Differential Differential Comment Sodium Potassium Chloride Carbon Dioxide Anion Gap BUN Creatinine Estimated GFR Random Glucose Calcium Magnesium 1.7 Total Bilirubin Direct Bilirubin Indirect Bilirubin AST ALT Alkaline Phosphatase Total Protein Albumin Lipase Urine Color Urine Clarity Urine pH Ur Specific Marshall Urine Protein Urine Glucose (UA) Urine Ketones Urine Occult Blood Urine Nitrate Urine Bilirubin Urine Urobilinogen Ur Leukocyte Esterase Urine RBC Urine WBC Ur Squamous Epith Cells Calcium Oxalate Crystal Amorphous Sediment Urine Bacteria Hyaline Casts Urine Mucus Ur Microscopic Review Stl C.difficile DNA Amp St C. diff Tox Epid 027 - Imaging Impressions Abdomen/Pelvis CT 03/10/18 14:40 CONCLUSION: 1. No acute abnormality. 2. Tiny hiatal hernia. 3. Prior cholecystectomy. <Concetta Hernandez - Last Filed: 03/11/18 09:15> - Labs CBC & Chem 7: 03/11/18 06:15 03/11/18 06:15 Labs: Laboratory Results - last 24 hr 03/11/18 03/11/18 03/11/18 01:18 06:15 06:15 WBC 12.2 H D RBC 5.64 H Hgb 10.5 L Hct 32.8 L MCV 58.3 L MCH 18.6 L MCHC 32.0 RDW 15.6 Plt Count 398 MPV 8.5 Neut % (Auto) 82.3 H Lymph % (Auto) 9.5 Coles % (Auto) 7.9 Eos % (Auto) 0.1 Baso % (Auto) 0.2 Neut # (Auto) 10.0 H Lymph # (Auto) 1.2 Coles # (Auto) 1.0 H Eos # (Auto) 0.0 Baso # (Auto) 0.0 WBC Differential . Differential Comment Auto diff final Sodium 140 Potassium 3.3 L Chloride 106 Carbon Dioxide 26.8 Anion Gap 7 BUN 8 Creatinine 0.62 Estimated GFR Greater than 89 Random Glucose 92 Calcium 8.1 L Magnesium Total Bilirubin 0.9 AST 27 ALT 36 Alkaline Phosphatase 80 Total Protein 6.6 D Albumin 3.0 L D Lipase 65 L Stl C.difficile DNA Amp Negative St C. diff Tox Epid 027 Negative 03/11/18 06:15 WBC RBC Hgb Hct MCV MCH MCHC RDW Plt Count MPV Neut % (Auto) Lymph % (Auto) Coles % (Auto) Eos % (Auto) Baso % (Auto) Neut # (Auto) Lymph # (Auto) Coles # (Auto) Eos # (Auto) Baso # (Auto) WBC Differential Differential Comment Sodium Potassium Chloride Carbon Dioxide Anion Gap BUN Creatinine Estimated GFR Random Glucose Calcium Magnesium 1.7 Total Bilirubin AST ALT Alkaline Phosphatase Total Protein Albumin Lipase Stl C.difficile DNA Amp St C. diff Tox Epid 027 <Baylee Paulino - Last Filed: 03/11/18 16:42> Assessment and Plan - Plan Assessment - Nausea, vomiting Nausea was initially intermittent mostly after meals and has progressively become constant over the past four weeks. States multiple episodes of emesis. Denies any hematemesis or coffee-ground emesis. - Diarrhea- Multiple episodes a day. Complaints of fecal urgency and last night had an episode of fecal incontinence. She does report noticing some bright red blood mixed in with her stool and on the toilet paper when she wipes, states that she has a known hemorrhoid. Denies any melena. - Abdominal pain, initially began in the left lower quadrant about 4 weeks ago. States that pain is constant and now radiates to her entire abdomen. Describes the pain as sharp and aching. States everything makes it worse even a few sips of water. Has tried Aleve and Advil at home with no relief in symptoms. Patient denies any recent unintentional weight loss. Denies any family history significant for Crohn's disease or ulcerative colitis. Patient does report that she had seen a GI doctor in [place] a little over a year ago and was diagnosed with IBS, patient later found out that she needed a cholecystectomy and since having that procedure a year ago states that GI symptoms had completely resolved up until a month ago. Patient denies previous colonoscopy or EGD. She denies any sick contacts, ingestion of suspicious foods, recent travel. 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 CT abdomen/pelvis with IV contrast --> no acute abnormality. Tiny hiatal hernia. Prior cholecystectomy C. difficile negative Plan Enteric pathogens stool pending If negative, colonoscopy and EGD tomorrow Obtain consent Clear liquids today Mag citrate prep N.p.o. after midnight Cipro/Flagyl DC oral Vanco Antiemetics as needed Pain medication Continue supportive care Further recommendations to follow This patient has been seen and examined by myself and Dr. Paulino this note is written on his behalf <Concetta Hernandez - Last Filed: 03/11/18 09:15> - Plan Seen and examined with [facility], stool studies show norovirus. Colonoscopy cancelled. Supportive care. <Baylee Paulino - Last Filed: 03/11/18 16:42>
[2018-03-11] MEDS: Potassium Chlor 10 mEq Premix 10 MEQ/100 ML PIGGYBACK IV.SIG SCH ×2 (09:28→11:27)
--- NOTE | 2018-03-11 10:27 | P.PN ---
Subjective Interval history: Patient is seen lying quietly in bed. She tells me that her nausea and vomiting has been controlled however she is still experiencing diarrhea and had an episode of fecal incontinence overnight. No chest pain or shortness of breath. She is experiencing fever and chills. Physical Exam Vital signs: Vital Signs 03/10/18 13:02 03/10/18 16:00 03/10/18 18:16 Temperature 98.2 F Pulse Rate 118 H 90 97 H Respiratory Rate 20 18 20 Blood Pressure 156/106 H 130/71 115/62 Pulse Oximetry 98 97 97 03/10/18 20:00 03/10/18 21:59 03/10/18 22:45 Temperature Pulse Rate 105 H 107 H Respiratory Rate 16 16 Blood Pressure 110/76 Pulse Oximetry 98 03/10/18 23:59 03/11/18 04:00 03/11/18 08:06 Temperature 99.8 F H 98.2 F 99.3 F Pulse Rate 120 H 112 H 114 H Respiratory Rate 19 18 20 Blood Pressure 123/70 87/39 L 98/50 L Pulse Oximetry 98 98 97 Intake & Output 03/10/18 03/11/18 03/11/18 18:59 06:59 18:59 Intake Total 1300 / 1300 1300 / 1300 100 / 100 Balance 1300 / 1300 1300 / 1300 100 / 100 Weight 79.379 kg 79.379 kg Intake: IV 1300 / 1300 1300 / 1300 100 / 100 D5W/1/2NS + KCL 20 mEq Inj 1, 1000 / 1000 000 ML @ 100 mls/hr IV.CONT . Q10H [facility] Rx#:[id number] Cipro 400 MG/200 ML Inj 400 mg 200 / 200 200 / 200 In 200 ml @ 200 mls/hr IV.SIG Q12H [facility] Rx#:[id number] Flagyl 500 MG Inj 100 ML @ 100 100 / 100 100 / 100 100 / 100 mls/hr IV.SIG Q8H [facility] Rx#: [id number] Other: Date of Last Bowel Movement 03/10/18 Weight On Admission 79.379 kg Narrative: GENERAL: Well-nourished, well-developed adult female in no obvious distress. SKIN: Warm and dry. HEAD: Atraumatic. Normocephalic. CARDIOVASCULAR: Regular rate and rhythm. RESPIRATORY: No accessory muscle use. Clear to auscultation. Breath sounds equal bilaterally. GASTROINTESTINAL: Abdomen soft, tender across left side and epigastric area, non -distended. Positive bowel sounds. MUSCULOSKELETAL: Extremities without clubbing, cyanosis, or edema. No obvious deformities. NEUROLOGICAL: Awake and alert. No obvious cranial nerve deficits. Motor grossly within normal limits. Normal speech. PSYCHIATRIC: Appropriate mood and affect; insight and judgment good. Results - Labs CBC & Chem 7: 03/11/18 06:15 03/11/18 06:15 Laboratory Results - last 24 hr 03/10/18 03/10/18 03/10/18 13:45 13:45 14:50 WBC 26.7 H RBC 6.42 H Hgb 12.0 Hct 37.5 MCV 58.4 L MCH 18.8 L MCHC 32.1 RDW 16.3 Plt Count 527 H D MPV 8.3 Neut % (Auto) 86.1 H Lymph % (Auto) 6.2 L Centre % (Auto) 6.6 Eos % (Auto) 1.0 Baso % (Auto) 0.1 Neut # (Auto) 23.0 H Lymph # (Auto) 1.6 Centre # (Auto) 1.8 H Eos # (Auto) 0.3 Baso # (Auto) 0.0 WBC Differential . Differential Comment Auto diff final Sodium 144 Potassium 3.8 Chloride 105 Carbon Dioxide 29.7 Anion Gap 9 BUN 12 Creatinine 0.73 Estimated GFR Greater than 89 Random Glucose 120 H Calcium 8.8 Magnesium Total Bilirubin 0.8 Direct Bilirubin 0.2 Indirect Bilirubin 0.6 AST 31 ALT 41 Alkaline Phosphatase 109 Total Protein 8.0 Albumin 3.9 Lipase 106 Urine Color Yellow Urine Clarity Cloudy H Urine pH 5.0 Ur Specific [place] 1.026 Urine Protein Negative Urine Glucose (UA) Negative Urine Ketones Negative Urine Occult Blood Negative Urine Nitrate Negative Urine Bilirubin Negative Urine Urobilinogen Less than 2 Ur Leukocyte Esterase Moderate H Urine RBC 3 Urine WBC 8 H Ur Squamous Epith Cells 5 Calcium Oxalate Crystal Rare H Amorphous Sediment Rare H Urine Bacteria Occasional H Hyaline Casts 1 Urine Mucus Moderate H Ur Microscopic Review Not Reportable Stl C.difficile DNA Amp St C. diff Tox Epid 027 03/11/18 03/11/18 03/11/18 01:18 06:15 06:15 WBC 12.2 H D RBC 5.64 H Hgb 10.5 L Hct 32.8 L MCV 58.3 L MCH 18.6 L MCHC 32.0 RDW 15.6 Plt Count 398 MPV 8.5 Neut % (Auto) 82.3 H Lymph % (Auto) 9.5 Centre % (Auto) 7.9 Eos % (Auto) 0.1 Baso % (Auto) 0.2 Neut # (Auto) 10.0 H Lymph # (Auto) 1.2 Centre # (Auto) 1.0 H Eos # (Auto) 0.0 Baso # (Auto) 0.0 WBC Differential . Differential Comment Auto diff final Sodium 140 Potassium 3.3 L Chloride 106 Carbon Dioxide 26.8 Anion Gap 7 BUN 8 Creatinine 0.62 Estimated GFR Greater than 89 Random Glucose 92 Calcium 8.1 L Magnesium Total Bilirubin 0.9 Direct Bilirubin Indirect Bilirubin AST 27 ALT 36 Alkaline Phosphatase 80 Total Protein 6.6 D Albumin 3.0 L D Lipase 65 L Urine Color Urine Clarity Urine pH Ur Specific [place] Urine Protein Urine Glucose (UA) Urine Ketones Urine Occult Blood Urine Nitrate Urine Bilirubin Urine Urobilinogen Ur Leukocyte Esterase Urine RBC Urine WBC Ur Squamous Epith Cells Calcium Oxalate Crystal Amorphous Sediment Urine Bacteria Hyaline Casts Urine Mucus Ur Microscopic Review Stl C.difficile DNA Amp Negative St C. diff Tox Epid 027 Negative 03/11/18 06:15 WBC RBC Hgb Hct MCV MCH MCHC RDW Plt Count MPV Neut % (Auto) Lymph % (Auto) Centre % (Auto) Eos % (Auto) Baso % (Auto) Neut # (Auto) Lymph # (Auto) Centre # (Auto) Eos # (Auto) Baso # (Auto) WBC Differential Differential Comment Sodium Potassium Chloride Carbon Dioxide Anion Gap BUN Creatinine Estimated GFR Random Glucose Calcium Magnesium 1.7 Total Bilirubin Direct Bilirubin Indirect Bilirubin AST ALT Alkaline Phosphatase Total Protein Albumin Lipase Urine Color Urine Clarity Urine pH Ur Specific [place] Urine Protein Urine Glucose (UA) Urine Ketones Urine Occult Blood Urine Nitrate Urine Bilirubin Urine Urobilinogen Ur Leukocyte Esterase Urine RBC Urine WBC Ur Squamous Epith Cells Calcium Oxalate Crystal Amorphous Sediment Urine Bacteria Hyaline Casts Urine Mucus Ur Microscopic Review Stl C.difficile DNA Amp St C. diff Tox Epid 027 Microbiology 03/11/18 01:18 Stool Stool for WBCs - Final Few WBC's - Imaging Impressions Abdomen/Pelvis CT 03/10/18 14:40 CONCLUSION: 1. No acute abnormality. 2. Tiny hiatal hernia. 3. Prior cholecystectomy. Assessment and Plan - Plan 22-year-old female with past medical history of anxiety/depression and scoliosis. Presents to the emergency room with a 3-4-week history of abdominal pain nausea and diarrhea. Surgical history significant for cholecystectomy. Sepsis/abdominal pain with left-sided flank pain. -Febrile, WBC 26+, hypotensive (baseline 130;s systolic), heart rate 100+ at admission (initial BP indicated hypertension however patient was in significant pain) -Flagyl and Cipro due to penicillin allergy -Urine and stool cultures pending -vancomycin 500 mg p.o. every 6 hours -stopped 03/11 due to C. difficile negative -consult gastroenterology -EGD and colonoscopy scheduled for 03/12 -Continue on clear liquid diet -Antiemetics -Pain control -Continue IV fluids KCl 20/D5/NS at 100; bolused 1 L NS in ED. Additional 1 L NS bolus 03/11 due to hypotension. Hypokalemia -Likely related to vomiting and diarrhea -Replacement ordered; monitor Code Status: Full code Discussed Condition With: RN and patient and Concetta CARLIN and Dr. Claire Discharge Planning: Pending improvement - likely home
[2018-03-11] MEDS ORDERED: Naloxone Inj 0.4 MG/ML Vial IV.PUSH PRN (11:46)
[2018-03-11] MEDS ORDERED: Morphine Inj 4 MG/ML Vial IV.PUSH PRN (11:46)
[2018-03-11] MEDS ORDERED: Magnesium Citrate Liq 300 ML Bottle PO ONE ×2 (16:00→18:00)
[2018-03-12] MEDS: KCL 20 mEq/D5W/NaCl 0.45% Inj 1,000 ML IV.CONT SCH ×3 (02:30→22:26)
[2018-03-12] MEDS: Ciprofloxacin 400 MG/200 ML 400 MG/200 ML PIGGYBACK IV.SIG SCH ×2 (02:30→13:02)
[2018-03-12] MEDS: Famotidine PF Inj 20 MG/2 ML Vial IV.PUSH SCH ×2 (08:39→21:23)
[2018-03-12 10:10] LABS: Baso # (Auto) 0.1 th/mm3 (0.0-0.2); Baso % (Auto) 0.8 % (0.0-2.0); Eos # (Auto) 0.3 th/mm3 (0.0-0.4); Eos % (Auto) 4.2 % (0.0-4.0); Hematocrit 31.7 % (35.0-46.0); Hemoglobin 10.1 gm/dL (11.6-15.3); Lymph # (Auto) 2.1 th/mm3 (1.0-4.8); Lymph % (Auto) 27.7 % (9.0-44.0); Mean Corpuscular Hemoglobin 18.6 pg (27.0-34.0); Mean Corpuscular Volume 58.1 fL (80.0-100.0); Mean Platelet Volume 8.3 fL (7.0-11.0); Mono # (Auto) 1.1 th/mm3 (0.0-0.9); Neut % (Auto) 53.3 % (16.0-70.0); Platelet Count 365 th/mm3 (150-450); Red Blood Count 5.45 mil/mm3 (4.00-5.30); Red Cell Distribution Width 15.8 % (11.6-17.2); White Blood Count 7.6 th/mm3 (4.0-11.0)
[2018-03-12 10:55] LABS: Alanine Aminotransferase 35 U/L (10-53); Anion Gap 9 meq/L (5-15); Aspartate Aminotransferase 24 U/L (15-37); Blood Urea Nitrogen 3 mg/dL (7-18); Carbon Dioxide 27.9 meq/L (21.0-32.0); Chloride 107 meq/L (98-107); Glomerular Filtration Rate Greater Than 89 mL/min (>89); Glucose,Random 78 mg/dL (74-106); Magnesium 1.9 mg/dL (1.5-2.5); Potassium 3.4 meq/L (3.5-5.1); Sodium 144 meq/L (136-145)
[2018-03-12 10:57] LABS: Alkaline Phosphatase 73 U/L (45-117); Total Protein 6.4 g/dL (6.4-8.2)
--- NOTE | 2018-03-12 11:36 | P.PNGI ---
Subjective Interval history: Patient laying supine in bed, awake alert. States continued loose brown stool, 3 BMs this morning. Denies any bleeding nausea or vomiting <Jeny Mccall - Last Filed: 03/12/18 11:28> Physical Exam Vital signs: Vital Signs 03/11/18 16:46 03/11/18 20:00 03/12/18 00:00 Temperature 98.2 F 98.0 F 99.0 F Pulse Rate 85 92 H 80 Respiratory Rate 20 14 16 Blood Pressure 108/59 L 102/58 L 109/58 L Pulse Oximetry 95 95 95 03/12/18 04:00 03/12/18 08:00 Temperature 98.7 F 98.2 F Pulse Rate 78 71 Respiratory Rate 16 16 Blood Pressure 116/67 120/76 Pulse Oximetry 95 96 Intake & Output 03/11/18 03/12/18 03/12/18 18:59 06:59 18:59 Intake Total 2600 / 2600 1300 / 1300 100 / 100 Balance 2600 / 2600 1300 / 1300 100 / 100 Intake: IV 2600 / 2600 1300 / 1300 100 / 100 D5W/1/2NS + KCL 20 mEq Inj 1, 1000 / 1000 1000 / 1000 000 ML @ 100 mls/hr IV.CONT . Q10H [facility] Rx#:[id number] Cipro 400 MG/200 ML Inj 400 mg 200 / 200 200 / 200 In 200 ml @ 200 mls/hr IV.SIG Q12H [facility] Rx#:[id number] KCl 10 mEq Premix Inj 10 meq In 200 / 200 100 ml @ 100 mls/hr IV.SIG Q1H [facility] Rx#:[id number] NS Inj 1,000 ML @ Wide Open IV. 1000 / 1000 SIG BOLUS ONE Rx#:[id number] Flagyl 500 MG Inj 100 ML @ 100 200 / 200 100 / 100 100 / 100 mls/hr IV.SIG Q8H [facility] Rx#: [id number] Other: # Voids 2 Date of Last Bowel Movement 03/11/18 03/11/18 # Bowel Movements 2 - Constitutional no acute distress - Routine HEENT Exam Head: Present: normocephalic - Routine Respiratory Exam Present: CTA bilaterally. Absent: accessory muscle use - Routine Cardiovascular Exam Present: RRR - Routine Abdominal Exam Present: soft, normoactive bowel sounds. Absent: tenderness, distended, guarding, firm - Routine Extremities Exam Present: full ROM. Absent: edema - Routine Skin Exam Present: dry, warm - Routine Neurological Exam Present: alert, oriented X3 - Detailed Neurological Exam: Coma Scale Eye Opening: Spontaneous Verbal Response: Oriented Motor Response: Obey commands Freddy Coma Scale Total: 15 - Routine Psychiatric Exam Present: normal affect, cooperative <Jeny Mccall - Last Filed: 03/12/18 11:28> Vital signs: Vital Signs 03/11/18 16:46 03/11/18 20:00 03/12/18 00:00 Temperature 98.2 F 98.0 F 99.0 F Pulse Rate 85 92 H 80 Respiratory Rate 20 14 16 Blood Pressure 108/59 L 102/58 L 109/58 L Pulse Oximetry 95 95 95 03/12/18 04:00 03/12/18 08:00 03/12/18 12:00 Temperature 98.7 F 98.2 F 98.5 F Pulse Rate 78 71 79 Respiratory Rate 16 16 16 Blood Pressure 116/67 120/76 120/64 Pulse Oximetry 95 96 97 Intake & Output 03/11/18 03/12/18 03/12/18 18:59 06:59 18:59 Intake Total 2600 / 2600 1300 / 1300 100 / 100 Balance 2600 / 2600 1300 / 1300 100 / 100 Intake: IV 2600 / 2600 1300 / 1300 100 / 100 D5W/1/2NS + KCL 20 mEq Inj 1, 1000 / 1000 1000 / 1000 000 ML @ 100 mls/hr IV.CONT . Q10H [facility] Rx#:[id number] Cipro 400 MG/200 ML Inj 400 mg 200 / 200 200 / 200 In 200 ml @ 200 mls/hr IV.SIG Q12H [facility] Rx#:[id number] KCl 10 mEq Premix Inj 10 meq In 200 / 200 100 ml @ 100 mls/hr IV.SIG Q1H [facility] Rx#:[id number] NS Inj 1,000 ML @ Wide Open IV. 1000 / 1000 SIG BOLUS ONE Rx#:[id number] Flagyl 500 MG Inj 100 ML @ 100 200 / 200 100 / 100 100 / 100 mls/hr IV.SIG Q8H [facility] Rx#: [id number] Other: # Voids 2 Date of Last Bowel Movement 03/11/18 03/11/18 # Bowel Movements 2 <Baylee Paulino - Last Filed: 03/12/18 13:26> Results - Labs CBC & Chem 7: 03/12/18 09:22 03/12/18 09:22 Laboratory Results - last 24 hr 03/12/18 03/12/18 09:22 09:22 WBC 7.6 RBC 5.45 H Hgb 10.1 L Hct 31.7 L MCV 58.1 L MCH 18.6 L MCHC 32.0 RDW 15.8 Plt Count 365 MPV 8.3 Neut % (Auto) 53.3 Lymph % (Auto) 27.7 [place] % (Auto) 14.0 H Eos % (Auto) 4.2 H Baso % (Auto) 0.8 Neut # (Auto) 4.0 Lymph # (Auto) 2.1 [place] # (Auto) 1.1 H Eos # (Auto) 0.3 Baso # (Auto) 0.1 WBC Differential . Differential Comment Auto diff final Sodium 144 Potassium 3.4 L Chloride 107 Carbon Dioxide 27.9 Anion Gap 9 BUN 3 L Creatinine 0.66 Estimated GFR Greater than 89 Random Glucose 78 Calcium 8.0 L Magnesium 1.9 Total Bilirubin 0.5 AST 24 ALT 35 Alkaline Phosphatase 73 Total Protein 6.4 Albumin 3.0 L Microbiology 03/11/18 01:18 Stool Enteric Pathogens (PCR) - Final Norovirus 03/11/18 11:30 Stool Cryptosporidium Antigen - Final Negative - No Cryptosporicium antigen detected In selected cases of patients with a history of immunosuppression or foreign travel, a full ova and parasites examination may be desired. Contact the microbiology lab if full workup is indicated and subit another specimen for testing. 03/11/18 11:30 Stool Giardia Antigen (JUDITH) - Final Negative - No Giardia Antigen detected In selected cases of patients with a history of immunosuppression or foreign travel, a full ova and parasites examination may be desired. Contact the microbiology lab if full workup is indicated and subit another specimen for testing. 03/11/18 01:18 Stool Stool for WBCs - Final Few WBC's <Jeny Mccall - Last Filed: 03/12/18 11:28> - Labs CBC & Chem 7: 03/12/18 09:22 03/12/18 09:22 Laboratory Results - last 24 hr 03/12/18 03/12/18 09:22 09:22 WBC 7.6 RBC 5.45 H Hgb 10.1 L Hct 31.7 L MCV 58.1 L MCH 18.6 L MCHC 32.0 RDW 15.8 Plt Count 365 MPV 8.3 Neut % (Auto) 53.3 Lymph % (Auto) 27.7 [place] % (Auto) 14.0 H Eos % (Auto) 4.2 H Baso % (Auto) 0.8 Neut # (Auto) 4.0 Lymph # (Auto) 2.1 [place] # (Auto) 1.1 H Eos # (Auto) 0.3 Baso # (Auto) 0.1 WBC Differential . Differential Comment Auto diff final Sodium 144 Potassium 3.4 L Chloride 107 Carbon Dioxide 27.9 Anion Gap 9 BUN 3 L Creatinine 0.66 Estimated GFR Greater than 89 Random Glucose 78 Calcium 8.0 L Magnesium 1.9 Total Bilirubin 0.5 AST 24 ALT 35 Alkaline Phosphatase 73 Total Protein 6.4 Albumin 3.0 L Microbiology 03/10/18 14:09 Clean Catch Urine Urine Culture - Final <10,000 cfu/mL mixed gram positive abdoulaye - no further workup 03/11/18 01:18 Stool Enteric Pathogens (PCR) - Final Norovirus 03/11/18 11:30 Stool Cryptosporidium Antigen - Final Negative - No Cryptosporicium antigen detected In selected cases of patients with a history of immunosuppression or foreign travel, a full ova and parasites examination may be desired. Contact the microbiology lab if full workup is indicated and subit another specimen for testing. 03/11/18 11:30 Stool Giardia Antigen (JUDITH) - Final Negative - No Giardia Antigen detected In selected cases of patients with a history of immunosuppression or foreign travel, a full ova and parasites examination may be desired. Contact the microbiology lab if full workup is indicated and subit another specimen for testing. 03/11/18 01:18 Stool Stool for WBCs - Final Few WBC's <Baylee Paulino - Last Filed: 03/12/18 13:26> Assessment and Plan - Plan Nausea, vomiting Nausea was initially intermittent mostly after meals and has progressively become constant over the past four weeks. States multiple episodes of emesis. Denies any hematemesis or coffee-ground emesis. - Diarrhea- Multiple episodes a day. Complaints of fecal urgency and last night had an episode of fecal incontinence. She does report noticing some bright red blood mixed in with her stool and on the toilet paper when she wipes, states that she has a known hemorrhoid. Denies any melena. - Abdominal pain, initially began in the left lower quadrant about 4 weeks ago. States that pain is constant and now radiates to her entire abdomen. Describes the pain as sharp and aching. States everything makes it worse even a few sips of water. Has tried Aleve and Advil at home with no relief in symptoms. Patient denies any recent unintentional weight loss. Denies any family history significant for Crohn's disease or ulcerative colitis. Patient does report that she had seen a GI doctor in [place] a little over a year ago and was diagnosed with IBS, patient later found out that she needed a cholecystectomy and since having that procedure a year ago states that GI symptoms had completely resolved up until a month ago. Patient denies previous colonoscopy or EGD. She denies any sick contacts, ingestion of suspicious foods, recent travel. 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 CT abdomen/pelvis with IV contrast --> no acute abnormality. Tiny hiatal hernia. Prior cholecystectomy C. difficile negative 03/12/2018 Nausea vomiting-patient denies nausea at this time. Denies any vomiting, will advance to regular diet. Diarrhea-patient reports 3 loose watery brown BMs this morning. Denies any noted bleeding, denies dark stools. Endorses an episode of fecal incontinence this morning. Abdominal pain-patient denies abdominal pain at this time. Reports some soreness. WBC 7.6 hemoglobin 10.1 hematocrit 31.7 plt count 365 total bilirubin 0.5 AST 24 ALT 35 alk phos 73. C. difficile toxin negative from 03/11/2018. We will continue supportive care. Plan -Regular diet -PPI -Analgesics as per attending -Reglan as needed for nausea -Bentyl -Continue IV antibiotics -Supportive care -Further recommendations to follow based on findings and patient status This patient has been seen by myself and Dr. Paulino and this note is written on his behalf - Attending Attestation Dr. Paulino <Jeny Mccall - Last Filed: 03/12/18 11:28> - Plan Seen and examined with [facility], still with nausea and diarrhea. Norovirus in stools. Will add lomotil and bentyl due to cramping and severe diarrhea. The exam, history, and the medical decision-making described in the above note were completed with the assistance of the mid-level provider. I reviewed and agree with the findings presented. I attest that I had a [id number]-shbu encounter with the patient on the same day, and personally performed and documented my assessment and findings in the medical record. <Baylee Paulino - Last Filed: 03/12/18 13:26>
[2018-03-12] MEDS: Diphenoxylate/Atropine 2.5/0.025 MG Tablet PO SCH ×2 (12:22→21:23)
--- NOTE | 2018-03-12 17:59 | P.PN ---
Subjective Interval history: Patient seen lying in bed. She tells me that she is feeling better. Diarrhea is improving but she is still having episodes intermittently. Has not really been hungry but has kept down small amounts of food and fluids. No chest pain or shortness of breath. No fever or chills. Abdomen is still sore. Physical Exam Vital signs: Vital Signs 03/11/18 20:00 03/12/18 00:00 03/12/18 04:00 Temperature 98.0 F 99.0 F 98.7 F Pulse Rate 92 H 80 78 Respiratory Rate 14 16 16 Blood Pressure 102/58 L 109/58 L 116/67 Pulse Oximetry 95 95 95 03/12/18 08:00 03/12/18 12:00 Temperature 98.2 F 98.5 F Pulse Rate 71 79 Respiratory Rate 16 16 Blood Pressure 120/76 120/64 Pulse Oximetry 96 97 Intake & Output 03/11/18 03/12/18 03/12/18 18:59 06:59 18:59 Intake Total 2600 / 2600 1300 / 1300 400 / 400 Balance 2600 / 2600 1300 / 1300 400 / 400 Intake: IV 2600 / 2600 1300 / 1300 400 / 400 D5W/1/2NS + KCL 20 mEq Inj 1, 1000 / 1000 1000 / 1000 000 ML @ 100 mls/hr IV.CONT . Q10H [facility] Rx#:[id number] Cipro 400 MG/200 ML Inj 400 mg 200 / 200 200 / 200 200 / 200 In 200 ml @ 200 mls/hr IV.SIG Q12H [facility] Rx#:[id number] KCl 10 mEq Premix Inj 10 meq In 200 / 200 100 ml @ 100 mls/hr IV.SIG Q1H [facility] Rx#:[id number] NS Inj 1,000 ML @ Wide Open IV. 1000 / 1000 SIG BOLUS ONE Rx#:[id number] Flagyl 500 MG Inj 100 ML @ 100 200 / 200 100 / 100 200 / 200 mls/hr IV.SIG Q8H [facility] Rx#: [id number] Other: # Voids 2 Date of Last Bowel Movement 03/11/18 03/11/18 # Bowel Movements 2 Narrative: GENERAL: Well-nourished, well-developed adult female in no obvious distress. SKIN: Warm and dry. HEAD: Atraumatic. Normocephalic. CARDIOVASCULAR: Regular rate and rhythm. RESPIRATORY: No accessory muscle use. Clear to auscultation. Breath sounds equal bilaterally. GASTROINTESTINAL: Abdomen soft, tender across left side and epigastric area, non -distended. Positive bowel sounds. MUSCULOSKELETAL: Extremities without clubbing, cyanosis, or edema. No obvious deformities. NEUROLOGICAL: Awake and alert. No obvious cranial nerve deficits. Motor grossly within normal limits. Normal speech. PSYCHIATRIC: Appropriate mood and affect; insight and judgment good. Results - Labs CBC & Chem 7: 03/12/18 09:22 03/12/18 09:22 Laboratory Results - last 24 hr 03/12/18 03/12/18 09:22 09:22 WBC 7.6 RBC 5.45 H Hgb 10.1 L Hct 31.7 L MCV 58.1 L MCH 18.6 L MCHC 32.0 RDW 15.8 Plt Count 365 MPV 8.3 Neut % (Auto) 53.3 Lymph % (Auto) 27.7 [place] % (Auto) 14.0 H Eos % (Auto) 4.2 H Baso % (Auto) 0.8 Neut # (Auto) 4.0 Lymph # (Auto) 2.1 [place] # (Auto) 1.1 H Eos # (Auto) 0.3 Baso # (Auto) 0.1 WBC Differential . Differential Comment Auto diff final Sodium 144 Potassium 3.4 L Chloride 107 Carbon Dioxide 27.9 Anion Gap 9 BUN 3 L Creatinine 0.66 Estimated GFR Greater than 89 Random Glucose 78 Calcium 8.0 L Magnesium 1.9 Total Bilirubin 0.5 AST 24 ALT 35 Alkaline Phosphatase 73 Total Protein 6.4 Albumin 3.0 L Microbiology 03/10/18 14:09 Clean Catch Urine Urine Culture - Final <10,000 cfu/mL mixed gram positive abdoulaye - no further workup 03/11/18 01:18 Stool Enteric Pathogens (PCR) - Final Norovirus 03/11/18 11:30 Stool Cryptosporidium Antigen - Final Negative - No Cryptosporicium antigen detected In selected cases of patients with a history of immunosuppression or foreign travel, a full ova and parasites examination may be desired. Contact the microbiology lab if full workup is indicated and subit another specimen for testing. 03/11/18 11:30 Stool Giardia Antigen (JUDITH) - Final Negative - No Giardia Antigen detected In selected cases of patients with a history of immunosuppression or foreign travel, a full ova and parasites examination may be desired. Contact the microbiology lab if full workup is indicated and subit another specimen for testing. Assessment and Plan - Plan 22-year-old female with past medical history of anxiety/depression and scoliosis. Presents to the emergency room with a 3-4-week history of abdominal pain nausea and diarrhea. Surgical history significant for cholecystectomy. Sepsis/abdominal pain with left-sided flank pain. -Febrile, WBC 26+, hypotensive (baseline 130;s systolic), heart rate 100+ at admission (initial BP indicated hypertension however patient was in significant pain) -Flagyl and Cipro due to penicillin allergy - stopped 03/12 due to identification of Noro virus -Urine culture negative. stool cultures indicate normal virus -vancomycin 500 mg p.o. every 6 hours -stopped 03/11 due to C. difficile negative -consult gastroenterology -possible EGD and colonoscopy on Thursday 03/15 if not improved -Continue diet as tolerated -Antiemetics -Pain control -Continue IV fluids KCl 20/D5/NS at 100; bolused 1 L NS in ED. Additional 1 L NS bolus 03/11 due to hypotension. Hypokalemia -Likely related to vomiting and diarrhea -Replacement ordered; monitor Code Status: Full code Discussed Condition With: RN and patient and Concetta CARLIN and Dr. Claire Discharge Planning: Pending improvement - likely home
[2018-03-13] MEDS: Ciprofloxacin 400 MG/200 ML 400 MG/200 ML PIGGYBACK IV.SIG SCH ×2 (01:49→15:25)
[2018-03-13] MEDS: Diphenoxylate/Atropine 2.5/0.025 MG Tablet PO SCH ×3 (04:19→20:08)
[2018-03-13 05:13] LABS: Baso # (Auto) 0.1 th/mm3 (0.0-0.2); Baso % (Auto) 0.7 % (0.0-2.0); Eos # (Auto) 0.3 th/mm3 (0.0-0.4); Eos % (Auto) 3.3 % (0.0-4.0); Hematocrit 33.1 % (35.0-46.0); Hemoglobin 10.3 gm/dL (11.6-15.3); Lymph # (Auto) 2.3 th/mm3 (1.0-4.8); Lymph % (Auto) 25.9 % (9.0-44.0); Mean Corpuscular Hemoglobin 18.4 pg (27.0-34.0); Mean Corpuscular Volume 59.4 fL (80.0-100.0); Mean Platelet Volume 8.2 fL (7.0-11.0); Mono % (Auto) 11.9 % (0.0-8.0); Neut # (Auto) 5.1 th/mm3 (1.8-7.7); Neut % (Auto) 58.2 % (16.0-70.0); Platelet Count 406 th/mm3 (150-450); Red Blood Count 5.58 mil/mm3 (4.00-5.30); Red Cell Distribution Width 15.9 % (11.6-17.2); White Blood Count 8.8 th/mm3 (4.0-11.0)
[2018-03-13 05:40] LABS: Anion Gap 6 meq/L (5-15); Blood Urea Nitrogen 7 mg/dL (7-18); Calcium 8.3 mg/dL (8.5-10.1); Carbon Dioxide 27.7 meq/L (21.0-32.0); Chloride 110 meq/L (98-107); Glomerular Filtration Rate Greater Than 89 mL/min (>89); Glucose,Random 79 mg/dL (74-106); Potassium 3.9 meq/L (3.5-5.1); Sodium 144 meq/L (136-145)
[2018-03-13] MEDS: KCL 20 mEq/D5W/NaCl 0.45% Inj 1,000 ML IV.CONT SCH ×3 (05:49→15:51)
[2018-03-13] MEDS: Famotidine PF Inj 20 MG/2 ML Vial IV.PUSH SCH ×2 (08:46→20:07)
--- NOTE | 2018-03-13 09:27 | P.PN ---
Subjective Interval history: Follow up for diarrhea, sepsis. Frequency of watery stools decreasing, 4 stools yesterday, is still large amounts. Abdominal cramping is mild. Poor appetite, however has been able to to keep food down. No vomiting. Wants to get up and take a shower. Overall is feeling much more improved. Physical Exam Vital signs: Vital Signs 03/12/18 12:00 03/12/18 20:00 03/13/18 00:00 Temperature 98.5 F 98.4 F 98.3 F Pulse Rate 79 84 78 Respiratory Rate 16 18 18 Blood Pressure 120/64 106/57 L 102/62 Pulse Oximetry 97 99 98 03/13/18 04:00 Temperature 98.1 F Pulse Rate 74 Respiratory Rate 18 Blood Pressure 121/74 Pulse Oximetry 99 Intake & Output 03/12/18 03/13/18 03/13/18 18:59 06:59 18:59 Intake Total 400 / 400 1156 / 1156 100 / 100 Balance 400 / 400 1156 / 1156 100 / 100 Intake: IV 400 / 400 796 / 796 100 / 100 D5W/1/2NS + KCL 20 mEq Inj 1, 496 / 496 000 ML @ 100 mls/hr IV.CONT . Q10H [facility] Rx#:[id number] Cipro 400 MG/200 ML Inj 400 mg 200 / 200 200 / 200 In 200 ml @ 200 mls/hr IV.SIG Q12H [facility] Rx#:[id number] Flagyl 500 MG Inj 100 ML @ 100 200 / 200 100 / 100 100 / 100 mls/hr IV.SIG Q8H [facility] Rx#: [id number] Oral 360 / 360 Other: Date of Last Bowel Movement 03/11/18 03/13/18 # Bowel Movements 7 Narrative: GENERAL: Well-nourished, well-developed adult female in no obvious distress. SKIN: Warm and dry. HEAD: Atraumatic. Normocephalic. CARDIOVASCULAR: Regular rate and rhythm. RESPIRATORY: No accessory muscle use. Clear to auscultation. Breath sounds equal bilaterally. GASTROINTESTINAL: Abdomen soft, tender across left side and epigastric area, non -distended. Positive bowel sounds. MUSCULOSKELETAL: Extremities without clubbing, cyanosis, or edema. No obvious deformities. NEUROLOGICAL: Awake and alert. No obvious cranial nerve deficits. Motor grossly within normal limits. Normal speech. PSYCHIATRIC: Appropriate mood and affect; insight and judgment good. Results - Labs CBC & Chem 7: 03/13/18 04:44 03/13/18 04:44 Laboratory Results - last 24 hr 03/12/18 03/12/18 03/13/18 09:22 09:22 04:44 WBC 7.6 8.8 RBC 5.45 H 5.58 H Hgb 10.1 L 10.3 L Hct 31.7 L 33.1 L MCV 58.1 L 59.4 L MCH 18.6 L 18.4 L MCHC 32.0 31.0 L RDW 15.8 15.9 Plt Count 365 406 MPV 8.3 8.2 Neut % (Auto) 53.3 58.2 Lymph % (Auto) 27.7 25.9 Crisp % (Auto) 14.0 H 11.9 H Eos % (Auto) 4.2 H 3.3 Baso % (Auto) 0.8 0.7 Neut # (Auto) 4.0 5.1 Lymph # (Auto) 2.1 2.3 Crisp # (Auto) 1.1 H 1.0 H Eos # (Auto) 0.3 0.3 Baso # (Auto) 0.1 0.1 WBC Differential . . Differential Comment Auto diff final Auto diff final Sodium 144 Potassium 3.4 L Chloride 107 Carbon Dioxide 27.9 Anion Gap 9 BUN 3 L Creatinine 0.66 Estimated GFR Greater than 89 Random Glucose 78 Calcium 8.0 L Magnesium 1.9 Total Bilirubin 0.5 AST 24 ALT 35 Alkaline Phosphatase 73 Total Protein 6.4 Albumin 3.0 L 03/13/18 04:44 WBC RBC Hgb Hct MCV MCH MCHC RDW Plt Count MPV Neut % (Auto) Lymph % (Auto) Crisp % (Auto) Eos % (Auto) Baso % (Auto) Neut # (Auto) Lymph # (Auto) Crisp # (Auto) Eos # (Auto) Baso # (Auto) WBC Differential Differential Comment Sodium 144 Potassium 3.9 Chloride 110 H Carbon Dioxide 27.7 Anion Gap 6 BUN 7 Creatinine 0.79 Estimated GFR Greater than 89 Random Glucose 79 Calcium 8.3 L Magnesium Total Bilirubin AST ALT Alkaline Phosphatase Total Protein Albumin Microbiology 03/10/18 14:09 Clean Catch Urine Urine Culture - Final <10,000 cfu/mL mixed gram positive abdoulaye - no further workup Assessment and Plan - Assessment (1) Sepsis Code(s): A41.9 - Sepsis, unspecified organism Status: Acute (2) Diarrhea Code(s): R19.7 - Diarrhea, unspecified Status: Acute - Plan 22-year-old female with past medical history of anxiety/depression and scoliosis. Presents to the emergency room with a 3-4-week history of abdominal pain nausea and diarrhea. Surgical history significant for cholecystectomy. Sepsis/abdominal pain with left-sided flank pain. -Febrile, WBC 26+, hypotensive (baseline 130;s systolic), heart rate 100+ at admission (initial BP indicated hypertension however patient was in significant pain) -Flagyl and Cipro due to penicillin allergy - stopped 03/12 due to identification of Noro virus -Urine culture negative. stool cultures indicate noro virus -vancomycin 500 mg p.o. every 6 hours -stopped 03/11 due to C. difficile negative -consult gastroenterology -possible EGD and colonoscopy on Thursday 03/15 if sx not improved -Continue diet as tolerated -Antiemetics -Continue Lomotil and Bentyl -Pain control -Continue IV fluids KCl 20/D5/NS at 100. -Hypertension appears to be resolving. Hypokalemia-resolving -Likely related to vomiting and diarrhea -Replacement ordered; monitor Labs reviewed, stable Symptoms improving slowly Code Status: Full code Discussed Condition With: RN, patient Discharge Planning: Possible discharge 2-3 days (1) Sepsis Qualifiers: Sepsis type: sepsis due to unspecified organism Qualified Code(s): A41.9 - Sepsis, unspecified organism (2) Diarrhea Qualifiers: Diarrhea type: presumed infectious Qualified Code(s): R19.7 - Diarrhea, unspecified
--- NOTE | 2018-03-13 14:24 | P.PNGI ---
Subjective Interval history: Pt is resting in bed, endorses improvement in diarrhea, she is going less, although still loose and yellow. No melena, hematochezia, nausea or vomiting <Erica Akbar - Last Filed: 03/13/18 14:19> Physical Exam Vital signs: Vital Signs 03/12/18 20:00 03/13/18 00:00 03/13/18 04:00 Temperature 98.4 F 98.3 F 98.1 F Pulse Rate 84 78 74 Respiratory Rate 18 18 18 Blood Pressure 106/57 L 102/62 121/74 Pulse Oximetry 99 98 99 03/13/18 08:00 03/13/18 12:00 Temperature 98.8 F 98.0 F Pulse Rate 75 79 Respiratory Rate 16 16 Blood Pressure 115/73 118/73 Pulse Oximetry 98 98 Intake & Output 03/12/18 03/13/18 03/13/18 18:59 06:59 18:59 Intake Total 400 / 400 1156 / 1156 604 / 604 Balance 400 / 400 1156 / 1156 604 / 604 Intake: IV 400 / 400 796 / 796 604 / 604 D5W/1/2NS + KCL 20 mEq Inj 1, 496 / 496 504 / 504 000 ML @ 100 mls/hr IV.CONT . Q10H [facility] Rx#:[id number] Cipro 400 MG/200 ML Inj 400 mg 200 / 200 200 / 200 In 200 ml @ 200 mls/hr IV.SIG Q12H [facility] Rx#:[id number] Flagyl 500 MG Inj 100 ML @ 100 200 / 200 100 / 100 100 / 100 mls/hr IV.SIG Q8H [facility] Rx#: [id number] Oral 360 / 360 Other: Date of Last Bowel Movement 03/11/18 03/13/18 03/13/18 # Bowel Movements 7 Narrative: GENERAL: Well-nourished, well-developed adult female in no obvious distress. CARDIOVASCULAR: Regular rate and rhythm. RESPIRATORY: No accessory muscle use. Clear to auscultation. Breath sounds equal bilaterally. GASTROINTESTINAL: Abdomen soft, nontender, non-distended. Positive bowel sounds. MUSCULOSKELETAL: Extremities without clubbing, cyanosis, or edema. No obvious deformities. NEUROLOGICAL: Awake and alert. No obvious cranial nerve deficits. Motor grossly within normal limits. Normal speech. PSYCHIATRIC: Appropriate mood and affect; insight and judgment good. <Erica Akbar - Last Filed: 03/13/18 14:19> Vital signs: Vital Signs 03/13/18 00:00 03/13/18 04:00 03/13/18 08:00 Temperature 98.3 F 98.1 F 98.8 F Pulse Rate 78 74 75 Respiratory Rate 18 18 16 Blood Pressure 102/62 121/74 115/73 Pulse Oximetry 98 99 98 03/13/18 12:00 03/13/18 16:00 03/13/18 20:00 Temperature 98.0 F 98.1 F 97.8 F Pulse Rate 79 75 78 Respiratory Rate 16 16 18 Blood Pressure 118/73 107/78 112/55 L Pulse Oximetry 98 99 98 03/13/18 22:02 Temperature Pulse Rate Respiratory Rate 17 Blood Pressure Pulse Oximetry Intake & Output 03/13/18 03/13/18 03/14/18 06:59 18:59 06:59 Intake Total 1156 / 1156 1324 / 1324 Balance 1156 / 1156 1324 / 1324 Intake: IV 796 / 796 904 / 904 D5W/1/2NS + KCL 20 mEq Inj 1, 496 / 496 504 / 504 000 ML @ 100 mls/hr IV.CONT . Q10H [facility] Rx#:[id number] Cipro 400 MG/200 ML Inj 400 mg 200 / 200 200 / 200 In 200 ml @ 200 mls/hr IV.SIG Q12H [facility] Rx#:[id number] Flagyl 500 MG Inj 100 ML @ 100 100 / 100 200 / 200 mls/hr IV.SIG Q8H [facility] Rx#: [id number] Oral 360 / 360 420 / 420 Other: # Voids 5 Date of Last Bowel Movement 03/13/18 03/13/18 # Bowel Movements 7 0 <KiannaOlivia - Last Filed: 03/13/18 22:41> Results - Labs CBC & Chem 7: 03/13/18 04:44 03/13/18 04:44 Laboratory Results - last 24 hr 03/13/18 03/13/18 04:44 04:44 WBC 8.8 RBC 5.58 H Hgb 10.3 L Hct 33.1 L MCV 59.4 L MCH 18.4 L MCHC 31.0 L RDW 15.9 Plt Count 406 MPV 8.2 Neut % (Auto) 58.2 Lymph % (Auto) 25.9 Chase % (Auto) 11.9 H Eos % (Auto) 3.3 Baso % (Auto) 0.7 Neut # (Auto) 5.1 Lymph # (Auto) 2.3 Chase # (Auto) 1.0 H Eos # (Auto) 0.3 Baso # (Auto) 0.1 WBC Differential . Differential Comment Auto diff final Sodium 144 Potassium 3.9 Chloride 110 H Carbon Dioxide 27.7 Anion Gap 6 BUN 7 Creatinine 0.79 Estimated GFR Greater than 89 Random Glucose 79 Calcium 8.3 L Microbiology 03/10/18 14:09 Clean Catch Urine Urine Culture - Final <10,000 cfu/mL mixed gram positive abdoulaye - no further workup - Imaging Abdomen/Pelvis CT 03/10/18 14:40 CONCLUSION: 1. No acute abnormality. 2. Tiny hiatal hernia. 3. Prior cholecystectomy. <Erica Akbar - Last Filed: 03/13/18 14:19> - Labs CBC & Chem 7: 03/13/18 04:44 03/13/18 04:44 Laboratory Results - last 24 hr 03/13/18 03/13/18 04:44 04:44 WBC 8.8 RBC 5.58 H Hgb 10.3 L Hct 33.1 L MCV 59.4 L MCH 18.4 L MCHC 31.0 L RDW 15.9 Plt Count 406 MPV 8.2 Neut % (Auto) 58.2 Lymph % (Auto) 25.9 Chase % (Auto) 11.9 H Eos % (Auto) 3.3 Baso % (Auto) 0.7 Neut # (Auto) 5.1 Lymph # (Auto) 2.3 Chase # (Auto) 1.0 H Eos # (Auto) 0.3 Baso # (Auto) 0.1 WBC Differential . Differential Comment Auto diff final Sodium 144 Potassium 3.9 Chloride 110 H Carbon Dioxide 27.7 Anion Gap 6 BUN 7 Creatinine 0.79 Estimated GFR Greater than 89 Random Glucose 79 Calcium 8.3 L <Olivia Hutchison - Last Filed: 03/13/18 22:41> Assessment and Plan - Plan - Norovirus in stools- improvement in frequency with Lomotil and Bentyl - Diarrhea X 4 weeks- stools studies except Norovirus negative. Abdomen/Pelvis CT 03/10/18 14:40 1. No acute abnormality. 2. Tiny hiatal hernia. 3. Prior cholecystectomy. Plan: - ADALGISA - Monitor stool out put - Cont. Bentyl - Cont. Lomotil - If no improvement, will consider colonoscopy - Supportive care - Pt seen and examined by Dr. Hutchison and myself and this note is written on her behalf. <Erica Akbar - Last Filed: 03/13/18 14:19> - Attending Attestation seen, examined agree with above <Olivia Hutchison - Last Filed: 03/13/18 22:41>
[2018-03-14] MEDS: KCL 20 mEq/D5W/NaCl 0.45% Inj 1,000 ML IV.CONT SCH ×5 (02:58→20:31)
[2018-03-14] MEDS: Diphenoxylate/Atropine 2.5/0.025 MG Tablet PO SCH ×3 (03:18→20:23)
[2018-03-14] MEDS: Ciprofloxacin 400 MG/200 ML 400 MG/200 ML PIGGYBACK IV.SIG SCH ×2 (03:18→13:39)
[2018-03-14] MEDS: Famotidine PF Inj 20 MG/2 ML Vial IV.PUSH SCH ×2 (08:41→20:23)
--- NOTE | 2018-03-14 13:45 | P.PNGI ---
Subjective Interval history: Pt is accompanied by a visitor, states "slowly but surly", still having liquid stools but less frequent, endorses nausea with eating. no bleeding, stools are neon in color <Erica Akbar - Last Filed: 03/14/18 13:35> Physical Exam Vital signs: Vital Signs 03/13/18 16:00 03/13/18 20:00 03/13/18 22:02 Temperature 98.1 F 97.8 F Pulse Rate 75 78 Respiratory Rate 16 18 17 Blood Pressure 107/78 112/55 L Pulse Oximetry 99 98 03/14/18 00:00 03/14/18 04:00 03/14/18 05:03 Temperature 98.0 F 98.3 F Pulse Rate 61 66 Respiratory Rate 18 17 18 Blood Pressure 125/64 119/72 Pulse Oximetry 99 99 03/14/18 08:00 Temperature 98.1 F Pulse Rate 70 Respiratory Rate 19 Blood Pressure 116/77 Pulse Oximetry 98 Intake & Output 03/13/18 03/14/18 03/14/18 18:59 06:59 18:59 Intake Total 1324 / 1324 1300 / 1300 100 / 100 Balance 1324 / 1324 1300 / 1300 100 / 100 Weight 85.7 kg Intake: IV 904 / 904 1300 / 1300 100 / 100 D5W/1/2NS + KCL 20 mEq Inj 1, 504 / 504 1000 / 1000 000 ML @ 100 mls/hr IV.CONT . Q10H [facility] Rx#:[id number] Cipro 400 MG/200 ML Inj 400 mg 200 / 200 200 / 200 In 200 ml @ 200 mls/hr IV.SIG Q12H [facility] Rx#:[id number] Flagyl 500 MG Inj 100 ML @ 100 200 / 200 100 / 100 100 / 100 mls/hr IV.SIG Q8H [facility] Rx#: [id number] Oral 420 / 420 Other: # Voids 5 Date of Last Bowel Movement 03/13/18 03/13/18 03/13/18 # Bowel Movements 0 Narrative: GENERAL: Well-nourished, well-developed adult female in no obvious distress. CARDIOVASCULAR: Regular rate and rhythm. RESPIRATORY: No accessory muscle use. Clear to auscultation. Breath sounds equal bilaterally. GASTROINTESTINAL: Abdomen soft, nontender, non-distended. Positive bowel sounds. MUSCULOSKELETAL: Extremities without clubbing, cyanosis, or edema. No obvious deformities. NEUROLOGICAL: Awake and alert. PSYCHIATRIC: Appropriate mood and affect; insight and judgment good. <Erica Akbar - Last Filed: 03/14/18 13:35> Vital signs: Vital Signs 03/13/18 16:00 03/13/18 20:00 03/13/18 22:02 Temperature 98.1 F 97.8 F Pulse Rate 75 78 Respiratory Rate 16 18 17 Blood Pressure 107/78 112/55 L Pulse Oximetry 99 98 03/14/18 00:00 03/14/18 04:00 03/14/18 05:03 Temperature 98.0 F 98.3 F Pulse Rate 61 66 Respiratory Rate 18 17 18 Blood Pressure 125/64 119/72 Pulse Oximetry 99 99 03/14/18 08:00 03/14/18 12:00 Temperature 98.1 F 98.2 F Pulse Rate 70 75 Respiratory Rate 19 19 Blood Pressure 116/77 115/78 Pulse Oximetry 98 99 Intake & Output 03/13/18 03/14/18 03/14/18 18:59 06:59 18:59 Intake Total 1324 / 1324 1300 / 1300 300 / 300 Balance 1324 / 1324 1300 / 1300 300 / 300 Weight 85.7 kg Intake: IV 904 / 904 1300 / 1300 300 / 300 D5W/1/2NS + KCL 20 mEq Inj 1, 504 / 504 1000 / 1000 000 ML @ 100 mls/hr IV.CONT . Q10H [facility] Rx#:[id number] Cipro 400 MG/200 ML Inj 400 mg 200 / 200 200 / 200 200 / 200 In 200 ml @ 200 mls/hr IV.SIG Q12H [facility] Rx#:[id number] Flagyl 500 MG Inj 100 ML @ 100 200 / 200 100 / 100 100 / 100 mls/hr IV.SIG Q8H [facility] Rx#: [id number] Oral 420 / 420 Other: # Voids 5 Date of Last Bowel Movement 03/13/18 03/13/18 03/13/18 # Bowel Movements 0 <Olivia Hutchison - Last Filed: 03/14/18 15:57> Results - Labs CBC & Chem 7: 03/13/18 04:44 03/13/18 04:44 <Erica Akbar - Last Filed: 03/14/18 13:35> - Labs CBC & Chem 7: 03/13/18 04:44 03/13/18 04:44 <Olivia Hutchison - Last Filed: 03/14/18 15:57> Assessment and Plan - Plan - Norovirus in stools- improvement in frequency with Lomotil and Bentyl - Diarrhea X 4 weeks- stools studies except Norovirus negative. Abdomen/Pelvis CT 03/10/18 14:40 1. No acute abnormality. 2. Tiny hiatal hernia. 3. Prior cholecystectomy. Plan: - ADALGISA - Monitor stool out put - Cont. Bentyl - Cont. Lomotil - If no improvement, will consider colonoscopy - Supportive care - Pt seen and examined by Dr. Hutchison and myself and this note is written on her behalf. <Erica Akbar - Last Filed: 03/14/18 13:35> - Attending Attestation seen, examined agree with above egd/colon in am <Olivia Hutchison - Last Filed: 03/14/18 15:57>
--- NOTE | 2018-03-14 13:59 | P.PNIM ---
Subjective Interval history: Chief Complaint: NAUSEA AND VOMITING AND DIARRHEA History of Present Illness: Patient is a 22-year-old female who presented with chief complaint of abdominal pain and vomiting and diarrhea. Patient also had some nausea and vomiting and some abdominal pain. She has been having abdominal pain on and off for the past 3-4 weeks. It usually radiates to the region of her left flank. She reports some pain and vomiting became constant severe this morning. She had been scheduled to follow-up with her primary care physician in [facility] regarding imaging and blood work that was done. She denies any hematuria. She denies any prior episodes of this denies any abnormal vaginal bleeding or discharge. Had the nausea and vomiting and abdominal pain. Had pain in the left upper quadrant left lower quadrant left flank. The been moderate severity. Requiring pain medications and antiemetics Patient will be placed into observation. 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 She tells me that her nausea and vomiting has been controlled however she is still experiencing diarrhea and had an episode of fecal incontinence overnight. No chest pain or shortness of breath. She is experiencing fever and chills. 10-12 Patient seen lying in bed. She tells me that she is feeling better. Diarrhea is improving but she is still having episodes intermittently. Has not really been hungry but has kept down small amounts of food and fluids. No chest pain or shortness of breath. No fever or chills. Abdomen is still sore. 10-13 Patient seen lying in bed. She tells me that she is feeling better. Diarrhea is improving but she is still having episodes intermittently. Has not really been hungry but has kept down small amounts of food and fluids. No chest pain or shortness of breath. No fever or chills. Abdomen is still sore. 10-14 STILL HAVING NOROVIRUS STILL HAVING WATER PER RECTUM STOOL HAS NOT THICKENED YET STILL NEEDING ANTINAUSEA MEDICATIONS WILL MONITOR TODAY AM LABS Physical Exam Vital signs: Vital Signs 03/13/18 16:00 03/13/18 20:00 03/13/18 22:02 Temperature 98.1 F 97.8 F Pulse Rate 75 78 Respiratory Rate 16 18 17 Blood Pressure 107/78 112/55 L Pulse Oximetry 99 98 03/14/18 00:00 03/14/18 04:00 03/14/18 05:03 Temperature 98.0 F 98.3 F Pulse Rate 61 66 Respiratory Rate 18 17 18 Blood Pressure 125/64 119/72 Pulse Oximetry 99 99 03/14/18 08:00 Temperature 98.1 F Pulse Rate 70 Respiratory Rate 19 Blood Pressure 116/77 Pulse Oximetry 98 Intake & Output 03/13/18 03/14/18 03/14/18 18:59 06:59 18:59 Intake Total 1324 / 1324 1300 / 1300 100 / 100 Balance 1324 / 1324 1300 / 1300 100 / 100 Weight 85.7 kg Intake: IV 904 / 904 1300 / 1300 100 / 100 D5W/1/2NS + KCL 20 mEq Inj 1, 504 / 504 1000 / 1000 000 ML @ 100 mls/hr IV.CONT . Q10H [facility] Rx#:[id number] Cipro 400 MG/200 ML Inj 400 mg 200 / 200 200 / 200 In 200 ml @ 200 mls/hr IV.SIG Q12H [facility] Rx#:[id number] Flagyl 500 MG Inj 100 ML @ 100 200 / 200 100 / 100 100 / 100 mls/hr IV.SIG Q8H [facility] Rx#: [id number] Oral 420 / 420 Other: # Voids 5 Date of Last Bowel Movement 03/13/18 03/13/18 03/13/18 # Bowel Movements 0 Narrative: GENERAL: Well-nourished, well-developed adult female in no obvious distress. CARDIOVASCULAR: Regular rate and rhythm. RESPIRATORY: No accessory muscle use. Clear to auscultation. Breath sounds equal bilaterally. GASTROINTESTINAL: Abdomen soft, nontender, non-distended. Positive bowel sounds. MUSCULOSKELETAL: Extremities without clubbing, cyanosis, or edema. No obvious deformities. NEUROLOGICAL: Awake and alert. PSYCHIATRIC: Appropriate mood and affect; insight and judgment good. Results - Labs CBC & Chem 7: 03/13/18 04:44 03/13/18 04:44 - Imaging ITS Impressions Abdomen/Pelvis CT 03/10/18 14:40 CONCLUSION: 1. No acute abnormality. 2. Tiny hiatal hernia. 3. Prior cholecystectomy. Assessment and Plan - Assessment (1) Sepsis Code(s): A41.9 - Sepsis, unspecified organism Status: Acute (2) Diarrhea Code(s): R19.7 - Diarrhea, unspecified Status: Acute - Plan 22-year-old female with past medical history of anxiety/depression and scoliosis. Presents to the emergency room with a 3-4-week history of abdominal pain nausea and diarrhea. Surgical history significant for cholecystectomy. Sepsis/abdominal pain with left-sided flank pain. -Febrile, WBC 26+, hypotensive (baseline 130;s systolic), heart rate 100+ at admission (initial BP indicated hypertension however patient was in significant pain) -Flagyl and Cipro due to penicillin allergy - stopped 03/12 due to identification of Noro virus -Urine culture negative. stool cultures indicate norovirus -vancomycin 500 mg p.o. every 6 hours -stopped 03/11 due to C. difficile negative- STOPPED SINCE NEGATIVE -consult gastroenterology -possible EGD and colonoscopy on Thursday 03/15 if sx not improved -Continue diet as tolerated -Antiemetics -Continue Lomotil and Bentyl -Pain control -Continue IV fluids KCl 20/D5/NS at 100. -Hypertension appears to be resolving. STOP ANTIBIOTICS Hypokalemia-resolving -Likely related to vomiting and diarrhea -Replacement ordered; monitor Labs reviewed, stable Symptoms improving slowly STILL WITH NAUSEA AND PURE WATER DIARRHEA AM LABS STAY IN HOSPITAL Code Status: FULL CODE Discussed Condition With: RN AND PT AND CM AND GI Discharge Planning: Pending improvement (1) Sepsis Qualifiers: Sepsis type: sepsis due to unspecified organism Qualified Code(s): A41.9 - Sepsis, unspecified organism (2) Diarrhea Qualifiers: Diarrhea type: presumed infectious Qualified Code(s): R19.7 - Diarrhea, unspecified
[2018-03-14] MEDS ORDERED: Magnesium Citrate Liq 300 ML Bottle PO ONE (15:56)
[2018-03-15] MEDS: Ciprofloxacin 400 MG/200 ML 400 MG/200 ML PIGGYBACK IV.SIG SCH ×2 (01:37→14:32)
[2018-03-15] MEDS: Diphenoxylate/Atropine 2.5/0.025 MG Tablet PO SCH ×3 (04:18→21:48)
[2018-03-15] MEDS: KCL 20 mEq/D5W/NaCl 0.45% Inj 1,000 ML IV.CONT SCH ×3 (06:08→18:38)
[2018-03-15 08:16] LABS: Baso # (Auto) 0.1 th/mm3 (0.0-0.2); Baso % (Auto) 0.9 % (0.0-2.0); Eos # (Auto) 0.3 th/mm3 (0.0-0.4); Eos % (Auto) 3.4 % (0.0-4.0); Hematocrit 34.4 % (35.0-46.0); Hemoglobin 11.1 gm/dL (11.6-15.3); Lymph # (Auto) 2.3 th/mm3 (1.0-4.8); Lymph % (Auto) 26.9 % (9.0-44.0); Mean Corpuscular HGB Conc 32.2 % (32.0-36.0); Mean Corpuscular Hemoglobin 18.7 pg (27.0-34.0); Mean Corpuscular Volume 58.2 fL (80.0-100.0); Mean Platelet Volume 8.5 fL (7.0-11.0); Mono % (Auto) 11.3 % (0.0-8.0); Neut # (Auto) 4.9 th/mm3 (1.8-7.7); Neut % (Auto) 57.5 % (16.0-70.0); Platelet Count 415 th/mm3 (150-450); Red Blood Count 5.91 mil/mm3 (4.00-5.30); Red Cell Distribution Width 15.9 % (11.6-17.2); White Blood Count 8.6 th/mm3 (4.0-11.0)
[2018-03-15] MEDS: Famotidine PF Inj 20 MG/2 ML Vial IV.PUSH SCH ×2 (08:28→21:48)
[2018-03-15 08:53] LABS: Alanine Aminotransferase 61 U/L (10-53); Albumin 3.2 g/dL (3.4-5.0); Alkaline Phosphatase 79 U/L (45-117); Anion Gap 8 meq/L (5-15); Aspartate Aminotransferase 60 U/L (15-37); Blood Urea Nitrogen 4 mg/dL (7-18); Calcium 8.8 mg/dL (8.5-10.1); Carbon Dioxide 26.1 meq/L (21.0-32.0); Chloride 108 meq/L (98-107); Free T4 (Free Thyroxine) 1.07 ng/dL (0.76-1.46); Glomerular Filtration Rate Greater Than 89 mL/min (>89); Glucose,Random 77 mg/dL (74-106); Magnesium 2.3 mg/dL (1.5-2.5); Phosphorus 2.8 mg/dL (2.5-4.9); Potassium 3.7 meq/L (3.5-5.1); Sodium 142 meq/L (136-145)
--- NOTE | 2018-03-15 11:13 | P.PNIM ---
Subjective Interval history: Chief Complaint: NAUSEA AND VOMITING AND DIARRHEA History of Present Illness: Patient is a 22-year-old female who presented with chief complaint of abdominal pain and vomiting and diarrhea. Patient also had some nausea and vomiting and some abdominal pain. She has been having abdominal pain on and off for the past 3-4 weeks. It usually radiates to the region of her left flank. She reports some pain and vomiting became constant severe this morning. She had been scheduled to follow-up with her primary care physician in [facility] regarding imaging and blood work that was done. She denies any hematuria. She denies any prior episodes of this denies any abnormal vaginal bleeding or discharge. Had the nausea and vomiting and abdominal pain. Had pain in the left upper quadrant left lower quadrant left flank. The been moderate severity. Requiring pain medications and antiemetics Patient will be placed into observation. 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 She tells me that her nausea and vomiting has been controlled however she is still experiencing diarrhea and had an episode of fecal incontinence overnight. No chest pain or shortness of breath. She is experiencing fever and chills. 10-12 Patient seen lying in bed. She tells me that she is feeling better. Diarrhea is improving but she is still having episodes intermittently. Has not really been hungry but has kept down small amounts of food and fluids. No chest pain or shortness of breath. No fever or chills. Abdomen is still sore. 10-13 Patient seen lying in bed. She tells me that she is feeling better. Diarrhea is improving but she is still having episodes intermittently. Has not really been hungry but has kept down small amounts of food and fluids. No chest pain or shortness of breath. No fever or chills. Abdomen is still sore. 10-14 STILL HAVING NOROVIRUS STILL HAVING WATER PER RECTUM STOOL HAS NOT THICKENED YET STILL NEEDING ANTINAUSEA MEDICATIONS WILL MONITOR TODAY AM LABS 10-15 TO HAVE COLONOSCOPY TODAY STILL HAVING WATER PER RECTUM AM LABS NEEDS TO TOLERATE DIET AND NOT HAVE FULL BLOWN DIARRHEA Physical Exam Vital signs: Vital Signs 03/14/18 12:00 03/14/18 16:00 03/14/18 20:00 Temperature 98.2 F 98.7 F 98.1 F Pulse Rate 75 73 81 Respiratory Rate 19 18 21 Blood Pressure 115/78 122/58 L 114/71 Pulse Oximetry 99 98 98 03/15/18 00:00 03/15/18 04:00 03/15/18 08:00 Temperature 97.8 F 98.2 F 98.4 F Pulse Rate 78 73 67 Respiratory Rate 18 18 18 Blood Pressure 111/58 L 114/59 L 114/66 Pulse Oximetry 97 98 98 Intake & Output 03/14/18 03/15/18 03/15/18 18:59 06:59 18:59 Intake Total 1920 / 1920 1300 / 1300 100 / 100 Balance 1920 / 1920 1300 / 1300 100 / 100 Weight 85.5 kg Intake: IV 1400 / 1400 1300 / 1300 100 / 100 D5W/1/2NS + KCL 20 mEq Inj 1, 1000 / 1000 1000 / 1000 000 ML @ 100 mls/hr IV.CONT . Q10H [facility] Rx#:[id number] Cipro 400 MG/200 ML Inj 400 mg 200 / 200 200 / 200 In 200 ml @ 200 mls/hr IV.SIG Q12H [facility] Rx#:[id number] Flagyl 500 MG Inj 100 ML @ 100 200 / 200 100 / 100 100 / 100 mls/hr IV.SIG Q8H [facility] Rx#: [id number] Oral 520 / 520 Other: # Voids 6 Date of Last Bowel Movement 03/13/18 03/14/18 03/14/18 # Bowel Movements 1 Narrative: GENERAL: Well-nourished, well-developed adult female in no obvious distress. CARDIOVASCULAR: Regular rate and rhythm. RESPIRATORY: No accessory muscle use. Clear to auscultation. Breath sounds equal bilaterally. GASTROINTESTINAL: Abdomen soft, nontender, non-distended. Positive bowel sounds. MUSCULOSKELETAL: Extremities without clubbing, cyanosis, or edema. No obvious deformities. NEUROLOGICAL: Awake and alert. PSYCHIATRIC: Appropriate mood and affect; insight and judgment good. Results - Labs CBC & Chem 7: 03/15/18 07:15 03/15/18 07:15 Laboratory Results - last 24 hr 03/15/18 03/15/18 07:15 07:15 WBC 8.6 RBC 5.91 H Hgb 11.1 L Hct 34.4 L MCV 58.2 L MCH 18.7 L MCHC 32.2 RDW 15.9 Plt Count 415 MPV 8.5 Neut % (Auto) 57.5 Lymph % (Auto) 26.9 [place] % (Auto) 11.3 H Eos % (Auto) 3.4 Baso % (Auto) 0.9 Neut # (Auto) 4.9 Lymph # (Auto) 2.3 [place] # (Auto) 1.0 H Eos # (Auto) 0.3 Baso # (Auto) 0.1 WBC Differential . Differential Comment Auto diff final Sodium 142 Potassium 3.7 Chloride 108 H Carbon Dioxide 26.1 Anion Gap 8 BUN 4 L Creatinine 0.68 Estimated GFR Greater than 89 Random Glucose 77 Calcium 8.8 Phosphorus 2.8 Magnesium 2.3 Total Bilirubin 0.5 AST 60 H ALT 61 H Alkaline Phosphatase 79 Total Protein 7.0 D Albumin 3.2 L TSH 2.100 Free T4 1.07 - Imaging Abdomen/Pelvis CT 03/10/18 14:40 CONCLUSION: 1. No acute abnormality. 2. Tiny hiatal hernia. 3. Prior cholecystectomy. Assessment and Plan - Assessment (1) Sepsis Code(s): A41.9 - Sepsis, unspecified organism Status: Acute (2) Diarrhea Code(s): R19.7 - Diarrhea, unspecified Status: Acute - Plan 22-year-old female with past medical history of anxiety/depression and scoliosis. Presents to the emergency room with a 3-4-week history of abdominal pain nausea and diarrhea. Surgical history significant for cholecystectomy. Sepsis/abdominal pain with left-sided flank pain. -Febrile, WBC 26+, hypotensive (baseline 130;s systolic), heart rate 100+ at admission (initial BP indicated hypertension however patient was in significant pain) -Flagyl and Cipro due to penicillin allergy - stopped 03/12 due to identification of Noro virus -Urine culture negative. stool cultures indicate norovirus -vancomycin 500 mg p.o. every 6 hours -stopped 03/11 due to C. difficile negative- STOPPED SINCE NEGATIVE -consult gastroenterology -possible EGD and colonoscopy on Thursday 03/15 if sx not improved -Continue diet as tolerated -Antiemetics -Continue Lomotil and Bentyl -Pain control -Continue IV fluids KCl 20/D5/NS at 100. -Hypertension appears to be resolving. STOP ANTIBIOTICS GOING FOR COLONOSCOPY ON 03-15 Hypokalemia-resolving -Likely related to vomiting and diarrhea -Replacement ordered; monitor Labs reviewed, stable Symptoms improving slowly STILL WITH NAUSEA AND PURE WATER DIARRHEA AM LABS STAY IN HOSPITAL Code Status: FULL CODE Discussed Condition With: RN AND PT AND CM Discharge Planning: Pending improvement (1) Sepsis Qualifiers: Sepsis type: sepsis due to unspecified organism Qualified Code(s): A41.9 - Sepsis, unspecified organism (2) Diarrhea Qualifiers: Diarrhea type: presumed infectious Qualified Code(s): R19.7 - Diarrhea, unspecified
--- NOTE | 2018-03-15 13:22 | GIPROC ---
[facility] [address] [facility]. [facility], [address] COLONOSCOPY PROCEDURE REPORT EXAM DATE: 03/15/2018 PATIENT NAME: Deloris Mansfield MR #: [id number] BIRTHDATE: 1995 ENDOSCOPIST: Olivia Hutchison MD ORDER #: [id number] SUPERINTENDENT DIVISION: Edson De La Torre and Ne Sullivan STATUS: inpatient INDICATIONS: The patient is a 22 yr old female here for a colonoscopy due to diarrhea PROCEDURE PERFORMED: Colonoscopy with biopsy MEDICATIONS: None and Per Anesthesia. PREP QUALITY: poor PREP TYPE:Other: ESTIMATED BLOOD LOSS: None CONSENT: The patient understands the risks and benefits of the procedure and understands that these risks include, but are not limited to: sedation, allergic reaction, infection, perforation and/or bleeding. Alternative means of evaluation and treatment include, among others: physical exam, x-rays, and/or surgical intervention. The patient elects to proceed with this endoscopic procedure. medical equipment was checked for proper function. Hand hygiene and appropriate measures for infection prevention was taken. After the risks, benefits and alternatives of the procedure were thoroughly explained, Informed consent was verified, confirmed and timeout was successfully executed by the treatment team. A digital exam revealed external hemorrhoids The Pentax EC-3490Li endoscope was introduced through the anus and advanced to the cecum, which was identified by both the appendix and ileocecal valve. The instrument was then slowly withdrawn as the colon was fully examined. COLON FINDINGS: Normal colon-biopsy from right and left colon colitis poor prep. Retroflexed views revealed no abnormalities The scope was then completely withdrawn from the patient and the procedure terminated. PROCEDURE WITHDRAWAL TIME:6minutes ADVERSE EVENTS: There were no complications. IMPRESSIONS: 1. Normal colon-biopsy from right and left colon colitis poor prep 2. Retroflexed views revealed no abnormalities 3. Revealed external hemorrhoids RECOMMENDATIONS: 1. Await biopsy results. Biopsy results will not be ready for 7-10 days. If you don't hear from us in two weeks, call our office for results. 2. Benefiber 2 tsp daily 3. Probiotics from any [facility] or health food store RECALL: Return 1 year Colonoscopy Olivia Hutchison MD eSigned: Olivia Hutchison MD 03/15/2018 1:22 PM cc:
--- NOTE | 2018-03-15 13:25 | GIPROC ---
[facility] [address] [facility]. [facility], [address] EGD PROCEDURE REPORT EXAM DATE: 03/15/2018 PATIENT NAME: Deloris Mansfield MR #: [id number] BIRTHDATE: 1995 ATTENDING: Olivia Hutchison MD ORDER #: [id number] [employer]UCK [employer] MECHANIC: Edson De La Torre and Ne Sullivan STATUS: inpatient INDICATIONS: The patient is a 22 yr old female here for an EGD due to diarrhea, nausea, vomiting PROCEDURE PERFORMED: EGD w/ biopsy MEDICATIONS: None and Per Anesthesia. TOPICAL ANESTHETIC: none CONSENT: The patient understands the risks and benefits of the procedure and understands that these risks include, but are not limited to: sedation, allergic reaction, infection, perforation and/or bleeding. Alternative means of evaluation and treatment include, among others: physical exam, x-rays, and/or surgical intervention. The patient elects to proceed with this endoscopic procedure. medical equipment was checked for proper function. Hand hygiene and appropriate measures for infection prevention was taken. After the risks, benefits and alternatives of the procedure were thoroughly explained, Informed consent was verified, confirmed and timeout was successfully executed by the treatment team. The patient was anesthetized with topical anesthesia and the EC-3490Li (Pedi C) endoscope was introduced through the mouth and advanced to the second portion of the duodenum. Retroflexed views revealed a hiatal hernia The gastroscope was then slowly withdrawn and removed. Duodenum normal-biopsy gastritis antrum-biopsy esophagitis distal esophagus-biopsy. ADVERSE EVENTS: There were no complications. IMPRESSIONS: 1. Duodenum normal-biopsy gastritis antrum-biopsy esophagitis distal esophagus-biopsy 2. Retroflexed views revealed a hiatal hernia RECOMMENDATIONS: 1. Await biopsy results. Biopsy results will not be ready for 7-10 days. If you don't hear from us in two weeks, call our office for biopsy results. 2. Anti-reflux regimen 3. Continue PPI 4. Ok to dc home from [facility] point if tolerating food and diarrhea better fu gi 2 weeks gi will sign off PATIENT CONDITION: stable DISPOSITION: Inpatient REPEAT EXAM: Return 1 year EGD Olivia Hutchison MD eSigned: Olivia Hutchison MD 03/15/2018 1:24 PM cc: PATIENT NAME: Deloris Mansfield MR#: [id number]
[2018-03-16] MEDS: Ciprofloxacin 400 MG/200 ML 400 MG/200 ML PIGGYBACK IV.SIG SCH ×2 (03:38→13:48)
[2018-03-16] MEDS: Diphenoxylate/Atropine 2.5/0.025 MG Tablet PO SCH ×3 (03:38→20:17)
[2018-03-16] MEDS: KCL 20 mEq/D5W/NaCl 0.45% Inj 1,000 ML IV.CONT SCH ×3 (03:39→16:46)
[2018-03-16] MEDS: Famotidine PF Inj 20 MG/2 ML Vial IV.PUSH SCH ×2 (08:44→20:17)
[2018-03-16 11:25] LABS: Baso # (Auto) 0.1 th/mm3 (0.0-0.2); Baso % (Auto) 0.8 % (0.0-2.0); Eos # (Auto) 0.4 th/mm3 (0.0-0.4); Eos % (Auto) 4.3 % (0.0-4.0); Hematocrit 33.4 % (35.0-46.0); Hemoglobin 10.8 gm/dL (11.6-15.3); Lymph # (Auto) 2.6 th/mm3 (1.0-4.8); Lymph % (Auto) 30.4 % (9.0-44.0); Mean Corpuscular HGB Conc 32.3 % (32.0-36.0); Mean Corpuscular Hemoglobin 18.8 pg (27.0-34.0); Mean Corpuscular Volume 58.4 fL (80.0-100.0); Mean Platelet Volume 8.9 fL (7.0-11.0); Mono # (Auto) 0.8 th/mm3 (0.0-0.9); Mono % (Auto) 9.4 % (0.0-8.0); Neut # (Auto) 4.7 th/mm3 (1.8-7.7); Neut % (Auto) 55.1 % (16.0-70.0); Platelet Count 405 th/mm3 (150-450); Red Blood Count 5.72 mil/mm3 (4.00-5.30); Red Cell Distribution Width 15.8 % (11.6-17.2); White Blood Count 8.6 th/mm3 (4.0-11.0)
[2018-03-16 11:41] LABS: Albumin 3.1 g/dL (3.4-5.0); Anion Gap 8 meq/L (5-15); Aspartate Aminotransferase 52 U/L (15-37); Blood Urea Nitrogen 6 mg/dL (7-18); Calcium 8.6 mg/dL (8.5-10.1); Carbon Dioxide 25.1 meq/L (21.0-32.0); Chloride 107 meq/L (98-107); Glomerular Filtration Rate Greater Than 89 mL/min (>89); Glucose,Random 110 mg/dL (74-106); Magnesium 1.9 mg/dL (1.5-2.5); Potassium 3.5 meq/L (3.5-5.1); Sodium 140 meq/L (136-145)
[2018-03-16 11:46] LABS: Alanine Aminotransferase 64 U/L (10-53); Alkaline Phosphatase 78 U/L (45-117); Phosphorus 2.4 mg/dL (2.5-4.9); Total Protein 6.7 g/dL (6.4-8.2)
--- NOTE | 2018-03-16 13:19 | P.PNIM ---
Subjective Interval history: Chief Complaint: NAUSEA AND VOMITING AND DIARRHEA History of Present Illness: Patient is a 22-year-old female who presented with chief complaint of abdominal pain and vomiting and diarrhea. Patient also had some nausea and vomiting and some abdominal pain. She has been having abdominal pain on and off for the past 3-4 weeks. It usually radiates to the region of her left flank. She reports some pain and vomiting became constant severe this morning. She had been scheduled to follow-up with her primary care physician in [facility] regarding imaging and blood work that was done. She denies any hematuria. She denies any prior episodes of this denies any abnormal vaginal bleeding or discharge. Had the nausea and vomiting and abdominal pain. Had pain in the left upper quadrant left lower quadrant left flank. The been moderate severity. Requiring pain medications and antiemetics Patient will be placed into observation. 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 She tells me that her nausea and vomiting has been controlled however she is still experiencing diarrhea and had an episode of fecal incontinence overnight. No chest pain or shortness of breath. She is experiencing fever and chills. 10-12 Patient seen lying in bed. She tells me that she is feeling better. Diarrhea is improving but she is still having episodes intermittently. Has not really been hungry but has kept down small amounts of food and fluids. No chest pain or shortness of breath. No fever or chills. Abdomen is still sore. 10-13 Patient seen lying in bed. She tells me that she is feeling better. Diarrhea is improving but she is still having episodes intermittently. Has not really been hungry but has kept down small amounts of food and fluids. No chest pain or shortness of breath. No fever or chills. Abdomen is still sore. 10-14 STILL HAVING NOROVIRUS STILL HAVING WATER PER RECTUM STOOL HAS NOT THICKENED YET STILL NEEDING ANTINAUSEA MEDICATIONS WILL MONITOR TODAY AM LABS 10-15 TO HAVE COLONOSCOPY TODAY STILL HAVING WATER PER RECTUM AM LABS NEEDS TO TOLERATE DIET AND NOT HAVE FULL BLOWN DIARRHEA 10-16 COLONOSCOPY WAS GOOD EGD HAD GASTRITIS ANTRUM, ESOPHAGITIS DISTAL ESOPHAGUS-PPI WANTS TO GO HOME TODAY RETURN TO WORK ON THURSDAY DC TO HOME DW RN AND PT AND CM Physical Exam Vital signs: Vital Signs 03/15/18 16:00 03/15/18 20:00 03/16/18 00:00 Temperature 97.5 F L 98 F 97.4 F L Pulse Rate 79 87 56 L Respiratory Rate 18 18 20 Blood Pressure 140/73 96/51 L 100/52 L Pulse Oximetry 97 97 96 03/16/18 04:00 03/16/18 08:00 03/16/18 12:00 Temperature 97.9 F 97.8 F 98.7 F Pulse Rate 59 L 63 68 Respiratory Rate 20 18 Blood Pressure 104/49 L 102/52 L 119/79 Pulse Oximetry 96 96 91 L Intake & Output 03/15/18 03/16/18 03/16/18 18:59 06:59 18:59 Intake Total 1800 / 1800 1300 / 1300 100 / 100 Balance 1800 / 1800 1300 / 1300 100 / 100 Weight 85.7 kg Intake: IV 1400 / 1400 1300 / 1300 100 / 100 D5W/1/2NS + KCL 20 mEq Inj 1, 1000 / 1000 1000 / 1000 000 ML @ 100 mls/hr IV.CONT . Q10H [facility] Rx#:[id number] Cipro 400 MG/200 ML Inj 400 mg 200 / 200 200 / 200 In 200 ml @ 200 mls/hr IV.SIG Q12H [facility] Rx#:[id number] Flagyl 500 MG Inj 100 ML @ 100 200 / 200 100 / 100 100 / 100 mls/hr IV.SIG Q8H [facility] Rx#: [id number] Anesthesia Amount 400 / 400 Other: Date of Last Bowel Movement 03/14/18 03/15/18 03/15/18 Narrative: GENERAL: Well-nourished, well-developed adult female in no obvious distress. CARDIOVASCULAR: Regular rate and rhythm. RESPIRATORY: No accessory muscle use. Clear to auscultation. Breath sounds equal bilaterally. GASTROINTESTINAL: Abdomen soft, nontender, non-distended. Positive bowel sounds. MUSCULOSKELETAL: Extremities without clubbing, cyanosis, or edema. No obvious deformities. NEUROLOGICAL: Awake and alert. PSYCHIATRIC: Appropriate mood and affect; insight and judgment good. Results - Labs CBC & Chem 7: 03/16/18 10:24 03/16/18 10:24 Laboratory Results - last 24 hr 03/16/18 03/16/18 10:24 10:24 WBC 8.6 RBC 5.72 H Hgb 10.8 L Hct 33.4 L MCV 58.4 L MCH 18.8 L MCHC 32.3 RDW 15.8 Plt Count 405 MPV 8.9 Neut % (Auto) 55.1 Lymph % (Auto) 30.4 [place] % (Auto) 9.4 H Eos % (Auto) 4.3 H Baso % (Auto) 0.8 Neut # (Auto) 4.7 Lymph # (Auto) 2.6 [place] # (Auto) 0.8 Eos # (Auto) 0.4 Baso # (Auto) 0.1 WBC Differential . Differential Comment Auto diff final Sodium 140 Potassium 3.5 Chloride 107 Carbon Dioxide 25.1 Anion Gap 8 BUN 6 L Creatinine 0.73 Estimated GFR Greater than 89 Random Glucose 110 H Calcium 8.6 Phosphorus 2.4 L Magnesium 1.9 Total Bilirubin 0.5 AST 52 H ALT 64 H Alkaline Phosphatase 78 Total Protein 6.7 Albumin 3.1 L - Imaging ITS Impressions Abdomen/Pelvis CT 03/10/18 14:40 CONCLUSION: 1. No acute abnormality. 2. Tiny hiatal hernia. 3. Prior cholecystectomy. - Procedures EGD PROCEDURE REPORT EXAM DATE: 03/15/2018 PATIENT NAME: Deloris Mansfield MR #: [id number] BIRTHDATE: 1995 ATTENDING: Olivia Hutchison MD ORDER #: [id number] INSURANCE UNDERWRITER SALES: Edson De La Torre and Ne Sullivan STATUS: inpatient INDICATIONS: The patient is a 22 yr old female here for an EGD due to diarrhea, nausea, vomiting PROCEDURE PERFORMED: EGD w/ biopsy MEDICATIONS: None and Per Anesthesia. TOPICAL ANESTHETIC: none CONSENT: The patient understands the risks and benefits of the procedure and understands that these risks include, but are not limited to: sedation, allergic reaction, infection, perforation and/or bleeding. Alternative means of evaluation and treatment include, among others: physical exam, x-rays, and/or surgical intervention. The patient elects to proceed with this endoscopic procedure. medical equipment was checked for proper function. Hand hygiene and appropriate measures for infection prevention was taken. After the risks, benefits and alternatives of the procedure were thoroughly explained, Informed consent was verified, confirmed and timeout was successfully executed by the treatment team. The patient was anesthetized with topical anesthesia and the EC-3490Li (Pedi C) endoscope was introduced through the mouth and advanced to the second portion of the duodenum. Retroflexed views revealed a hiatal hernia The gastroscope was then slowly withdrawn and removed. Duodenum normal-biopsy gastritis antrum-biopsy esophagitis distal esophagus-biopsy. ADVERSE EVENTS: There were no complications. IMPRESSIONS: 1. Duodenum normal-biopsy gastritis antrum-biopsy esophagitis distal esophagus-biopsy 2. Retroflexed views revealed a hiatal hernia RECOMMENDATIONS: 1. Await biopsy results. Biopsy results will not be ready for 7-10 days. If you don't hear from us in two weeks, call our office for biopsy results. 2. Anti-reflux regimen 3. Continue PPI 4. Ok to dc home from [facility] if tolerating food and diarrhea better fu gi 2 weeks gi will sign off PATIENT CONDITION: stable DISPOSITION: Inpatient REPEAT EXAM: Return 1 year EGD Olivia Hutchison MD eSigned: Olivia Hutchison MD 03/15/2018 1:24 PM COLONOSCOPY PROCEDURE REPORT EXAM DATE: 03/15/2018 PATIENT NAME: Deloris Mansfield MR #: [id number] BIRTHDATE: 1995 ENDOSCOPIST: Olivia Hutchison MD ORDER #: [id number] INSURANCE UNDERWRITER SALES: Edson De La Torre and Ne Sullivan STATUS: inpatient INDICATIONS: The patient is a 22 yr old female here for a colonoscopy due to diarrhea PROCEDURE PERFORMED: Colonoscopy with biopsy MEDICATIONS: None and Per Anesthesia. PREP QUALITY: poor PREP TYPE:Other: ESTIMATED BLOOD LOSS: None CONSENT: The patient understands the risks and benefits of the procedure and understands that these risks include, but are not limited to: sedation, allergic reaction, infection, perforation and/or bleeding. Alternative means of evaluation and treatment include, among others: physical exam, x-rays, and/or surgical intervention. The patient elects to proceed with this endoscopic procedure. medical equipment was checked for proper function. Hand hygiene and appropriate measures for infection prevention was taken. After the risks, benefits and alternatives of the procedure were thoroughly explained, Informed consent was verified, confirmed and timeout was successfully executed by the treatment team. A digital exam revealed external hemorrhoids The Pentax EC-3490Li endoscope was introduced through the anus and advanced to the cecum, which was identified by both the appendix and ileocecal valve. The instrument was then slowly withdrawn as the colon was fully examined. COLON FINDINGS: Normal colon-biopsy from right and left colon colitis poor prep. Retroflexed views revealed no abnormalities The scope was then completely withdrawn from the patient and the procedure terminated. PROCEDURE WITHDRAWAL TIME:6minutes ADVERSE EVENTS: There were no complications. IMPRESSIONS: 1. Normal colon-biopsy from right and left colon colitis poor prep 2. Retroflexed views revealed no abnormalities 3. Revealed external hemorrhoids RECOMMENDATIONS: 1. Await biopsy results. Biopsy results will not be ready for 7-10 days. If you don't hear from us in two weeks, call our office for results. 2. Benefiber 2 tsp daily 3. Probiotics from any [facility] or [employer] food store RECALL: Return 1 year Colonoscopy Assessment and Plan - Assessment (1) Sepsis Code(s): A41.9 - Sepsis, unspecified organism Status: Acute (2) Diarrhea Code(s): R19.7 - Diarrhea, unspecified Status: Acute - Plan 22-year-old female with past medical history of anxiety/depression and scoliosis. Presents to the emergency room with a 3-4-week history of abdominal pain nausea and diarrhea. Surgical history significant for cholecystectomy. Sepsis/abdominal pain with left-sided flank pain. -Febrile, WBC 26+, hypotensive (baseline 130;s systolic), heart rate 100+ at admission (initial BP indicated hypertension however patient was in significant pain) -Flagyl and Cipro due to penicillin allergy - stopped 03/12 due to identification of Noro virus -Urine culture negative. stool cultures indicate norovirus -vancomycin 500 mg p.o. every 6 hours -stopped 03/11 due to C. difficile negative- STOPPED SINCE NEGATIVE -consult gastroenterology -possible EGD and colonoscopy on Thursday 03/15 if sx not improved -Continue diet as tolerated -Antiemetics -Continue Lomotil and Bentyl -Pain control -Continue IV fluids KCl 20/D5/NS at 100. -Hypertension appears to be resolving. STOP ANTIBIOTICS GOING FOR COLONOSCOPY ON 03-15 AND EGD DC TO HOME Hypokalemia-resolving -Likely related to vomiting and diarrhea -Replacement ordered; monitor Labs reviewed, stable Symptoms improving slowly RESOLVED NAUSEA AND DIARRHEA AT THIS TIME DC TO HOME Code Status: FULL CODE Discussed Condition With: RN AND PT AND CM Discharge Planning: DC TO HOME TODAY (1) Sepsis Qualifiers: Sepsis type: sepsis due to unspecified organism Qualified Code(s): A41.9 - Sepsis, unspecified organism (2) Diarrhea Qualifiers: Diarrhea type: presumed infectious Qualified Code(s): R19.7 - Diarrhea, unspecified
--- NOTE | 2018-03-16 13:44 | P.DS ---
Date of admission: 03/11/18 12:59 Primary care physician: Daja Rea Attending physician on discharge: Nelson Zhou Anticipated date of discharge: 03/16/18 Brief History from admission: Patient is a 22-year-old female who presented with chief complaint of abdominal pain and vomiting and diarrhea. Patient also had some nausea and vomiting and some abdominal pain. She has been having abdominal pain on and off for the past 3-4 weeks. It usually radiates to the region of her left flank. She reports some pain and vomiting became constant severe this morning. She had been scheduled to follow-up with her primary care physician in [facility] regarding imaging and blood work that was done. She denies any hematuria. She denies any prior episodes of this denies any abnormal vaginal bleeding or discharge. Had the nausea and vomiting and abdominal pain. Had pain in the left upper quadrant left lower quadrant left flank. The been moderate severity. Requiring pain medications and antiemetics Patient will be placed into observation. 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 Patient also had some nausea and vomiting and some abdominal pain. She has been having abdominal pain on and off for the past 3-4 weeks. It usually radiates to the region of her left flank. She reports some pain and vomiting became constant severe this morning. She had been scheduled to follow-up with her primary care physician in [facility] regarding imaging and blood work that was done. She denies any hematuria. She denies any prior episodes of this denies any abnormal vaginal bleeding or discharge. Had the nausea and vomiting and abdominal pain. Had pain in the left upper quadrant left lower quadrant left flank. The been moderate severity. Requiring pain medications and antiemetics Patient will be placed into observation. 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 She tells me that her nausea and vomiting has been controlled however she is still experiencing diarrhea and had an episode of fecal incontinence overnight. No chest pain or shortness of breath. She is experiencing fever and chills. 10-12 Patient seen lying in bed. She tells me that she is feeling better. Diarrhea is improving but she is still having episodes intermittently. Has not really been hungry but has kept down small amounts of food and fluids. No chest pain or shortness of breath. No fever or chills. Abdomen is still sore. 10-13 Patient seen lying in bed. She tells me that she is feeling better. Diarrhea is improving but she is still having episodes intermittently. Has not really been hungry but has kept down small amounts of food and fluids. No chest pain or shortness of breath. No fever or chills. Abdomen is still sore. 10-14 STILL HAVING NOROVIRUS STILL HAVING WATER PER RECTUM STOOL HAS NOT THICKENED YET STILL NEEDING ANTINAUSEA MEDICATIONS WILL MONITOR TODAY AM LABS 10-15 TO HAVE COLONOSCOPY TODAY STILL HAVING WATER PER RECTUM AM LABS NEEDS TO TOLERATE DIET AND NOT HAVE FULL BLOWN DIARRHEA 10-16 COLONOSCOPY WAS GOOD EGD HAD GASTRITIS ANTRUM, ESOPHAGITIS DISTAL ESOPHAGUS-PPI WANTS TO GO HOME TODAY RETURN TO WORK ON THURSDAY DC TO HOME DW RN AND PT AND CM DS: Diagnosis - Discharge Diagnosis (1) Sepsis Status: Acute (2) Diarrhea Status: Acute (3) Norovirus Status: Acute (4) Nausea & vomiting Status: Acute (5) Electrolyte abnormality Status: Acute DS: Medications - Discharge Medications Prescriptions: dicyclomine 20 mg PO TID #90 tab diphenoxylate-atropine 1 tab PO Q8H #30 tab hydrocodone-acetaminophen 1 tab PO Q4H PRN #18 tab PRN Reason: Pain ondansetron [Zofran ODT] 8 mg PO TID PRN #30 tab PRN Reason: Nausea And Vomiting DS: Summary Hospital Course: Chief Complaint: NAUSEA AND VOMITING AND DIARRHEA History of Present Illness: Patient is a 22-year-old female who presented with chief complaint of abdominal pain and vomiting and diarrhea. Patient also had some nausea and vomiting and some abdominal pain. She has been having abdominal pain on and off for the past 3-4 weeks. It usually radiates to the region of her left flank. She reports some pain and vomiting became constant severe this morning. She had been scheduled to follow-up with her primary care physician in [facility] regarding imaging and blood work that was done. She denies any hematuria. She denies any prior episodes of this denies any abnormal vaginal bleeding or discharge. Had the nausea and vomiting and abdominal pain. Had pain in the left upper quadrant left lower quadrant left flank. The been moderate severity. Requiring pain medications and antiemetics Patient will be placed into observation. 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 She tells me that her nausea and vomiting has been controlled however she is still experiencing diarrhea and had an episode of fecal incontinence overnight. No chest pain or shortness of breath. She is experiencing fever and chills. 10-12 Patient seen lying in bed. She tells me that she is feeling better. Diarrhea is improving but she is still having episodes intermittently. Has not really been hungry but has kept down small amounts of food and fluids. No chest pain or shortness of breath. No fever or chills. Abdomen is still sore. 10-13 Patient seen lying in bed. She tells me that she is feeling better. Diarrhea is improving but she is still having episodes intermittently. Has not really been hungry but has kept down small amounts of food and fluids. No chest pain or shortness of breath. No fever or chills. Abdomen is still sore. 10-14 STILL HAVING NOROVIRUS STILL HAVING WATER PER RECTUM STOOL HAS NOT THICKENED YET STILL NEEDING ANTINAUSEA MEDICATIONS WILL MONITOR TODAY AM LABS 10-15 TO HAVE COLONOSCOPY TODAY STILL HAVING WATER PER RECTUM AM LABS NEEDS TO TOLERATE DIET AND NOT HAVE FULL BLOWN DIARRHEA 10-16 COLONOSCOPY WAS GOOD EGD HAD GASTRITIS ANTRUM, ESOPHAGITIS DISTAL ESOPHAGUS-PPI WANTS TO GO HOME TODAY RETURN TO WORK ON THURSDAY DC TO HOME DW RN AND PT AND CM - Time Spent with Patient Total time spent providing and/or coordinating discharge services: Greater than 30 minutes - Quality: VTE Deep Vein Thrombosis/Pulmonary Embolism Present on Admission: No Exam Vital signs: Vital Signs 03/15/18 16:00 03/15/18 20:00 03/16/18 00:00 Temperature 97.5 F L 98 F 97.4 F L Pulse Rate 79 87 56 L Respiratory Rate 18 18 20 Blood Pressure 140/73 96/51 L 100/52 L Pulse Oximetry 97 97 96 03/16/18 04:00 03/16/18 08:00 03/16/18 12:00 Temperature 97.9 F 97.8 F 98.7 F Pulse Rate 59 L 63 68 Respiratory Rate 20 18 Blood Pressure 104/49 L 102/52 L 119/79 Pulse Oximetry 96 96 91 L Intake & Output 03/15/18 03/16/18 03/16/18 18:59 06:59 18:59 Intake Total 1800 / 1800 1300 / 1300 100 / 100 Balance 1800 / 1800 1300 / 1300 100 / 100 Weight 85.7 kg Intake: IV 1400 / 1400 1300 / 1300 100 / 100 D5W/1/2NS + KCL 20 mEq Inj 1, 1000 / 1000 1000 / 1000 000 ML @ 100 mls/hr IV.CONT . Q10H [facility] Rx#:[id number] Cipro 400 MG/200 ML Inj 400 mg 200 / 200 200 / 200 In 200 ml @ 200 mls/hr IV.SIG Q12H [facility] Rx#:[id number] Flagyl 500 MG Inj 100 ML @ 100 200 / 200 100 / 100 100 / 100 mls/hr IV.SIG Q8H [facility] Rx#: [id number] Anesthesia Amount 400 / 400 Other: Date of Last Bowel Movement 03/14/18 03/15/18 03/15/18 Narrative: GENERAL: Well-nourished, well-developed adult female in no obvious distress. CARDIOVASCULAR: Regular rate and rhythm. RESPIRATORY: No accessory muscle use. Clear to auscultation. Breath sounds equal bilaterally. GASTROINTESTINAL: Abdomen soft, nontender, non-distended. Positive bowel sounds. MUSCULOSKELETAL: Extremities without clubbing, cyanosis, or edema. No obvious deformities. NEUROLOGICAL: Awake and alert. PSYCHIATRIC: Appropriate mood and affect; insight and judgment good. Results Procedures completed during hospitalization: EGD PROCEDURE REPORT EXAM DATE: 03/15/2018 PATIENT NAME: Deloris Mansfield MR #: [id number] BIRTHDATE: 1995 ATTENDING: Olivia Hutchison MD ORDER #: [id number] CHIEF CARDIOPULMONARY TECHNOLOGIST: Edson De La Torre and Ne Sullivan STATUS: inpatient INDICATIONS: The patient is a 22 yr old female here for an EGD due to diarrhea, nausea, vomiting PROCEDURE PERFORMED: EGD w/ biopsy MEDICATIONS: None and Per Anesthesia. TOPICAL ANESTHETIC: none CONSENT: The patient understands the risks and benefits of the procedure and understands that these risks include, but are not limited to: sedation, allergic reaction, infection, perforation and/or bleeding. Alternative means of evaluation and treatment include, among others: physical exam, x-rays, and/or surgical intervention. The patient elects to proceed with this endoscopic procedure. medical equipment was checked for proper function. Hand hygiene and appropriate measures for infection prevention was taken. After the risks, benefits and alternatives of the procedure were thoroughly explained, Informed consent was verified, confirmed and timeout was successfully executed by the treatment team. The patient was anesthetized with topical anesthesia and the EC-[id number] (Pedi C) endoscope was introduced through the mouth and advanced to the second portion of the duodenum. Retroflexed views revealed a hiatal hernia The gastroscope was then slowly withdrawn and removed. Duodenum normal-biopsy gastritis antrum-biopsy esophagitis distal esophagus-biopsy. ADVERSE EVENTS: There were no complications. IMPRESSIONS: 1. Duodenum normal-biopsy gastritis antrum-biopsy esophagitis distal esophagus-biopsy 2. Retroflexed views revealed a hiatal hernia RECOMMENDATIONS: 1. Await biopsy results. Biopsy results will not be ready for 7-10 days. If you don't hear from us in two weeks, call our office for biopsy results. 2. Anti-reflux regimen 3. Continue PPI 4. Ok to dc home from gi point if tolerating food and diarrhea better fu gi 2 weeks gi will sign off PATIENT CONDITION: stable DISPOSITION: Inpatient REPEAT EXAM: Return 1 year EGD Olivia Hutchison MD eSigned: Olivia Hutchison MD 03/15/2018 1:24 PM COLONOSCOPY PROCEDURE REPORT EXAM DATE: 03/15/2018 PATIENT NAME: Deloris Mansfield MR #: [id number] BIRTHDATE: 1995 ENDOSCOPIST: Olivia Hutchison MD ORDER #: [id number] CHIEF CARDIOPULMONARY TECHNOLOGIST: Edson De La Torre and Ne Sullivan STATUS: inpatient INDICATIONS: The patient is a 22 yr old female here for a colonoscopy due to diarrhea PROCEDURE PERFORMED: Colonoscopy with biopsy MEDICATIONS: None and Per Anesthesia. PREP QUALITY: poor PREP TYPE:Other: ESTIMATED BLOOD LOSS: None CONSENT: The patient understands the risks and benefits of the procedure and understands that these risks include, but are not limited to: sedation, allergic reaction, infection, perforation and/or bleeding. Alternative means of evaluation and treatment include, among others: physical exam, x-rays, and/or surgical intervention. The patient elects to proceed with this endoscopic procedure. medical equipment was checked for proper function. Hand hygiene and appropriate measures for infection prevention was taken. After the risks, benefits and alternatives of the procedure were thoroughly explained, Informed consent was verified, confirmed and timeout was successfully executed by the treatment team. A digital exam revealed external hemorrhoids The Pentax EC-3490Li endoscope was introduced through the anus and advanced to the cecum, which was identified by both the appendix and ileocecal valve. The instrument was then slowly withdrawn as the colon was fully examined. COLON FINDINGS: Normal colon-biopsy from right and left colon colitis poor prep. Retroflexed views revealed no abnormalities The scope was then completely withdrawn from the patient and the procedure terminated. PROCEDURE WITHDRAWAL TIME:6minutes ADVERSE EVENTS: There were no complications. IMPRESSIONS: 1. Normal colon-biopsy from right and left colon colitis poor prep 2. Retroflexed views revealed no abnormalities 3. Revealed external hemorrhoids RECOMMENDATIONS: 1. Await biopsy results. Biopsy results will not be ready for 7-10 days. If you don't hear from us in two weeks, call our office for results. 2. Benefiber 2 tsp daily 3. Probiotics from any [facility] or health food store RECALL: Return 1 year Colonoscopy Completed studies during hospitalization: Laboratory Results WBC 8.6 th/mm3 (4.0-11.0) 03/16/18 10:24 RBC 5.72 mil/mm3 (4.00-5.30) H 03/16/18 10:24 Hgb 10.8 gm/dL (11.6-15.3) L 03/16/18 10:24 Hct 33.4 % (35.0-46.0) L 03/16/18 10:24 MCV 58.4 fL (80.0-100.0) L 03/16/18 10:24 MCH 18.8 pg (27.0-34.0) L 03/16/18 10:24 MCHC 32.3 % (32.0-36.0) 03/16/18 10:24 RDW 15.8 % (11.6-17.2) 03/16/18 10:24 Plt Count 405 th/mm3 (150-450) 03/16/18 10:24 MPV 8.9 fL (7.0-11.0) 03/16/18 10:24 Neut % (Auto) 55.1 % (16.0-70.0) 03/16/18 10:24 Lymph % (Auto) 30.4 % (9.0-44.0) 03/16/18 10:24 Lake % (Auto) 9.4 % (0.0-8.0) H 03/16/18 10:24 Eos % (Auto) 4.3 % (0.0-4.0) H 03/16/18 10:24 Baso % (Auto) 0.8 % (0.0-2.0) 03/16/18 10:24 Neut # (Auto) 4.7 th/mm3 (1.8-7.7) 03/16/18 10:24 Lymph # (Auto) 2.6 th/mm3 (1.0-4.8) 03/16/18 10:24 Lake # (Auto) 0.8 th/mm3 (0.0-0.9) 03/16/18 10:24 Eos # (Auto) 0.4 th/mm3 (0.0-0.4) 03/16/18 10:24 Baso # (Auto) 0.1 th/mm3 (0.0-0.2) 03/16/18 10:24 WBC Differential . 03/16/18 10:24 Differential Comment Auto diff final 03/16/18 10:24 Sodium 140 meq/L (136-145) 03/16/18 10:24 Potassium 3.5 meq/L (3.5-5.1) 03/16/18 10:24 Chloride 107 meq/L (98-107) 03/16/18 10:24 Carbon Dioxide 25.1 meq/L (21.0-32.0) 03/16/18 10:24 Anion Gap 8 meq/L (5-15) 03/16/18 10:24 BUN 6 mg/dL (7-18) L 03/16/18 10:24 Creatinine 0.73 mg/dL (0.50-1.00) 03/16/18 10:24 Estimated GFR Greater than 89 mL/min (>89) 03/16/18 10:24 Random Glucose 110 mg/dL (74-106) H 03/16/18 10:24 Calcium 8.6 mg/dL (8.5-10.1) 03/16/18 10:24 Phosphorus 2.4 mg/dL (2.5-4.9) L 03/16/18 10:24 Magnesium 1.9 mg/dL (1.5-2.5) 03/16/18 10:24 Total Bilirubin 0.5 mg/dL (0.2-1.0) 03/16/18 10:24 Direct Bilirubin 0.2 mg/dL (0.0-0.2) 03/10/18 13:45 Indirect Bilirubin 0.6 mg/dL (0.0-0.8) 03/10/18 13:45 AST 52 U/L (15-37) H 03/16/18 10:24 ALT 64 U/L (10-53) H 03/16/18 10:24 Alkaline Phosphatase 78 U/L (45-117) 03/16/18 10:24 Total Protein 6.7 g/dL (6.4-8.2) 03/16/18 10:24 Albumin 3.1 g/dL (3.4-5.0) L 03/16/18 10:24 Lipase 65 U/L (73-393) L 03/11/18 06:15 TSH 2.100 uIU/mL (0.358-3.740) 03/15/18 07:15 Free T4 1.07 ng/dL (0.76-1.46) 03/15/18 07:15 Urine Color Yellow (Yellw/Straw) 03/10/18 14:50 Urine Clarity Cloudy (Clear) H 03/10/18 14:50 Urine pH 5.0 (5.0-8.5) 03/10/18 14:50 Ur Specific Danielson 1.026 (1.002-1.035) 03/10/18 14:50 Urine Protein Negative mg/dL (Neg-Trace) 03/10/18 14:50 Urine Glucose (UA) Negative mg/dL (Negative) 03/10/18 14:50 Urine Ketones Negative mg/dL (Negative) 03/10/18 14:50 Urine Occult Blood Negative (Negative) 03/10/18 14:50 Urine Nitrate Negative (Negative) 03/10/18 14:50 Urine Bilirubin Negative (Negative) 03/10/18 14:50 Urine Urobilinogen Less than 2 mg/dL (Less than 2) 03/10/18 14:50 Ur Leukocyte Esterase Moderate (Negative) H 03/10/18 14:50 Urine RBC 3 /hpf (0-3) 03/10/18 14:50 Urine WBC 8 /hpf (0-5) H 03/10/18 14:50 Ur Squamous Epith Cells 5 /hpf (0-5) 03/10/18 14:50 Calcium Oxalate Crystal Rare /hpf (None) H 03/10/18 14:50 Amorphous Sediment Rare /hpf (None) H 03/10/18 14:50 Urine Bacteria Occasional /hpf (None) H 03/10/18 14:50 Hyaline Casts 1 /lpf (0-3) 03/10/18 14:50 Urine Mucus Moderate /lpf (Occasional) H 03/10/18 14:50 Ur Microscopic Review Not Reportable 03/10/18 14:50 Stl C.difficile DNA Amp Negative (Negative) 03/11/18 01:18 St C. diff Tox Epid 027 Negative (Negative) 03/11/18 01:18 Impressions Abdomen/Pelvis CT 03/10/18 14:40 CONCLUSION: 1. No acute abnormality. 2. Tiny hiatal hernia. 3. Prior cholecystectomy. Pending studies at discharge: Pending at discharge 03/15/18 14:46 Surgical [PTH] Routine Labs on day of discharge: Labs from last 24 hours 03/16/18 03/16/18 10:24 10:24 WBC 8.6 RBC 5.72 H Hgb 10.8 L Hct 33.4 L MCV 58.4 L MCH 18.8 L MCHC 32.3 RDW 15.8 Plt Count 405 MPV 8.9 Neut % (Auto) 55.1 Lymph % (Auto) 30.4 Lake % (Auto) 9.4 H Eos % (Auto) 4.3 H Baso % (Auto) 0.8 Neut # (Auto) 4.7 Lymph # (Auto) 2.6 Lake # (Auto) 0.8 Eos # (Auto) 0.4 Baso # (Auto) 0.1 WBC Differential . Differential Comment Auto diff final Sodium 140 Potassium 3.5 Chloride 107 Carbon Dioxide 25.1 Anion Gap 8 BUN 6 L Creatinine 0.73 Estimated GFR Greater than 89 Random Glucose 110 H Calcium 8.6 Phosphorus 2.4 L Magnesium 1.9 Total Bilirubin 0.5 AST 52 H ALT 64 H Alkaline Phosphatase 78 Total Protein 6.7 Albumin 3.1 L - Impressions ITS Impressions Abdomen/Pelvis CT 03/10/18 14:40 CONCLUSION: 1. No acute abnormality. 2. Tiny hiatal hernia. 3. Prior cholecystectomy. Discharge Plan - Discharge Disposition Patient Disposition: 01 Discharge Home - Discharge Condition Condition: Good - Discharge Order Discharge Orders: Discharge Order (Routine); Ordered 03/16/18 Ordered By: Nelson Zhou - Discharge Details Anticipated Discharge Date: 03/16/18 Discharge Comment: dc to home - Physicians Team Primary Care Provider: Daja Rea Attending Provider: Nelson Zhou Other Providers: Baylee Paulino MD
[2018-03-17] MEDS: KCL 20 mEq/D5W/NaCl 0.45% Inj 1,000 ML IV.CONT SCH (02:57)
[2018-03-17] MEDS: Ciprofloxacin 400 MG/200 ML 400 MG/200 ML PIGGYBACK IV.SIG SCH (02:57)
[2018-03-17] MEDS: Diphenoxylate/Atropine 2.5/0.025 MG Tablet PO SCH (03:18)
[2018-03-17 08:16] LABS: Baso # (Auto) 0.1 th/mm3 (0.0-0.2); Eos # (Auto) 0.4 th/mm3 (0.0-0.4); Eos % (Auto) 4.6 % (0.0-4.0); Hematocrit 35.2 % (35.0-46.0); Lymph # (Auto) 2.4 th/mm3 (1.0-4.8); Lymph % (Auto) 26.6 % (9.0-44.0); Mean Corpuscular HGB Conc 31.3 % (32.0-36.0); Mean Corpuscular Hemoglobin 18.7 pg (27.0-34.0); Mean Corpuscular Volume 59.6 fL (80.0-100.0); Mean Platelet Volume 8.5 fL (7.0-11.0); Mono % (Auto) 10.6 % (0.0-8.0); Neut # (Auto) 5.2 th/mm3 (1.8-7.7); Neut % (Auto) 57.2 % (16.0-70.0); Platelet Count 468 th/mm3 (150-450); Red Cell Distribution Width 16.5 % (11.6-17.2); White Blood Count 9.1 th/mm3 (4.0-11.0)
[2018-03-17] MEDS: Famotidine PF Inj 20 MG/2 ML Vial IV.PUSH SCH (08:56)
--- NOTE | 2018-03-17 09:15 | P.PNIM ---
Subjective Interval history: Follow up gastroenteritis. Patient states diarrhea is improving. She does have swelling to her right AC from an infiltrated IV. Will Doppler before discharge. She is tolerating food and feels she can go home. Denies any chest pain, abdominal pain, sob, or fevers. Physical Exam Vital signs: Vital Signs 03/16/18 12:00 03/16/18 16:00 03/16/18 17:24 Temperature 98.7 F 97.3 F L Pulse Rate 68 72 Respiratory Rate 18 16 Blood Pressure 119/79 120/69 Pulse Oximetry 91 L 100 03/16/18 19:55 03/16/18 19:57 03/17/18 00:00 Temperature 98.2 F 98.3 F Pulse Rate 71 57 L Respiratory Rate 16 17 Blood Pressure 110/81 111/61 Pulse Oximetry 97 98 03/17/18 04:00 03/17/18 08:00 Temperature 98 F 98.5 F Pulse Rate 69 76 Respiratory Rate 17 20 Blood Pressure 99/62 L 107/65 Pulse Oximetry 97 97 Intake & Output 03/16/18 03/17/18 03/17/18 18:59 06:59 18:59 Intake Total 1400 / 1400 1500 / 1500 Output Total 350 / 350 Balance 1400 / 1400 1150 / 1150 Weight 86 kg Intake: IV 1400 / 1400 1300 / 1300 D5W/1/2NS + KCL 20 mEq Inj 1, 1000 / 1000 1000 / 1000 000 ML @ 100 mls/hr IV.CONT . Q10H [facility] Rx#:[id number] Cipro 400 MG/200 ML Inj 400 mg 200 / 200 200 / 200 In 200 ml @ 200 mls/hr IV.SIG Q12H [facility] Rx#:[id number] Flagyl 500 MG Inj 100 ML @ 100 200 / 200 100 / 100 mls/hr IV.SIG Q8H [facility] Rx#: [id number] Oral 200 / 200 Output: Urine 350 / 350 Other: Date of Last Bowel Movement 03/15/18 03/16/18 # Bowel Movements 0 Narrative: GENERAL: This is a well-nourished, well-developed patient, in no apparent distress. CARDIOVASCULAR: Regular rate and rhythm without murmurs, gallops, or rubs. RESPIRATORY: Clear to auscultation. Breath sounds equal bilaterally. No wheezes , rales, or rhonchi. GASTROINTESTINAL: Abdomen soft, non-tender, nondistended. Normal active bowel sounds MUSCULOSKELETAL: Extremities without clubbing, cyanosis, or edema. NEURO: Alert & Oriented x4 to person, place, time, situation. Moves all ext x4 Results - Labs CBC & Chem 7: 03/17/18 07:30 03/17/18 10:43 Laboratory Results - last 24 hr 03/16/18 03/16/18 03/17/18 10:24 10:24 07:30 WBC 8.6 9.1 RBC 5.72 H 5.90 H Hgb 10.8 L 11.0 L Hct 33.4 L 35.2 MCV 58.4 L 59.6 L MCH 18.8 L 18.7 L MCHC 32.3 31.3 L RDW 15.8 16.5 Plt Count 405 468 H MPV 8.9 8.5 Neut % (Auto) 55.1 57.2 Lymph % (Auto) 30.4 26.6 [place] % (Auto) 9.4 H 10.6 H Eos % (Auto) 4.3 H 4.6 H Baso % (Auto) 0.8 1.0 Neut # (Auto) 4.7 5.2 Lymph # (Auto) 2.6 2.4 [place] # (Auto) 0.8 1.0 H Eos # (Auto) 0.4 0.4 Baso # (Auto) 0.1 0.1 WBC Differential . . Differential Comment Auto diff final Auto diff final Sodium 140 Potassium 3.5 Chloride 107 Carbon Dioxide 25.1 Anion Gap 8 BUN 6 L Creatinine 0.73 Estimated GFR Greater than 89 Random Glucose 110 H Calcium 8.6 Phosphorus 2.4 L Magnesium 1.9 Total Bilirubin 0.5 AST 52 H ALT 64 H Alkaline Phosphatase 78 Total Protein 6.7 Albumin 3.1 L - Procedures EGD PROCEDURE REPORT EXAM DATE: 03/15/2018 PATIENT NAME: Deloris Mansfield MR #: [id number] BIRTHDATE: 1995 ATTENDING: Olivia Hutchison MD ORDER #: [id number] RESPIRATORY SUPPORT TECHNICIAN: Edson De La Torre and Ne Sullivan STATUS: inpatient INDICATIONS: The patient is a 22 yr old female here for an EGD due to diarrhea, nausea, vomiting PROCEDURE PERFORMED: EGD w/ biopsy MEDICATIONS: None and Per Anesthesia. TOPICAL ANESTHETIC: none CONSENT: The patient understands the risks and benefits of the procedure and understands that these risks include, but are not limited to: sedation, allergic reaction, infection, perforation and/or bleeding. Alternative means of evaluation and treatment include, among others: physical exam, x-rays, and/or surgical intervention. The patient elects to proceed with this endoscopic procedure. medical equipment was checked for proper function. Hand hygiene and appropriate measures for infection prevention was taken. After the risks, benefits and alternatives of the procedure were thoroughly explained, Informed consent was verified, confirmed and timeout was successfully executed by the treatment team. The patient was anesthetized with topical anesthesia and the EC-[id number] (Pedi C) endoscope was introduced through the mouth and advanced to the second portion of the duodenum. Retroflexed views revealed a hiatal hernia The gastroscope was then slowly withdrawn and removed. Duodenum normal-biopsy gastritis antrum-biopsy esophagitis distal esophagus-biopsy. ADVERSE EVENTS: There were no complications. IMPRESSIONS: 1. Duodenum normal-biopsy gastritis antrum-biopsy esophagitis distal esophagus-biopsy 2. Retroflexed views revealed a hiatal hernia RECOMMENDATIONS: 1. Await biopsy results. Biopsy results will not be ready for 7-10 days. If you don't hear from us in two weeks, call our office for biopsy results. 2. Anti-reflux regimen 3. Continue PPI 4. Ok to dc home from [facility] point if tolerating food and diarrhea better fu gi 2 weeks gi will sign off PATIENT CONDITION: stable DISPOSITION: Inpatient REPEAT EXAM: Return 1 year EGD Olivia Hutchison MD eSigned: Olivia Hutchison MD 03/15/2018 1:24 PM COLONOSCOPY PROCEDURE REPORT EXAM DATE: 03/15/2018 PATIENT NAME: Deloris Mansfield MR #: [id number] BIRTHDATE: 1995 ENDOSCOPIST: Olivia Hutchison MD ORDER #: [id number] RESPIRATORY SUPPORT TECHNICIAN: Edson De La Torre and Ne Sullivan STATUS: inpatient INDICATIONS: The patient is a 22 yr old female here for a colonoscopy due to diarrhea PROCEDURE PERFORMED: Colonoscopy with biopsy MEDICATIONS: None and Per Anesthesia. PREP QUALITY: poor PREP TYPE:Other: ESTIMATED BLOOD LOSS: None CONSENT: The patient understands the risks and benefits of the procedure and understands that these risks include, but are not limited to: sedation, allergic reaction, infection, perforation and/or bleeding. Alternative means of evaluation and treatment include, among others: physical exam, x-rays, and/or surgical intervention. The patient elects to proceed with this endoscopic procedure. medical equipment was checked for proper function. Hand hygiene and appropriate measures for infection prevention was taken. After the risks, benefits and alternatives of the procedure were thoroughly explained, Informed consent was verified, confirmed and timeout was successfully executed by the treatment team. A digital exam revealed external hemorrhoids The Pentax EC-[id number] endoscope was introduced through the anus and advanced to the cecum, which was identified by both the appendix and ileocecal valve. The instrument was then slowly withdrawn as the colon was fully examined. COLON FINDINGS: Normal colon-biopsy from right and left colon colitis poor prep. Retroflexed views revealed no abnormalities The scope was then completely withdrawn from the patient and the procedure terminated. PROCEDURE WITHDRAWAL TIME:6minutes ADVERSE EVENTS: There were no complications. IMPRESSIONS: 1. Normal colon-biopsy from right and left colon colitis poor prep 2. Retroflexed views revealed no abnormalities 3. Revealed external hemorrhoids RECOMMENDATIONS: 1. Await biopsy results. Biopsy results will not be ready for 7-10 days. If you don't hear from us in two weeks, call our office for results. 2. Benefiber 2 tsp daily 3. Probiotics from any [facility] or health food store RECALL: Return 1 year Colonoscopy Assessment and Plan - Assessment (1) Sepsis Code(s): A41.9 - Sepsis, unspecified organism Status: Acute (2) Diarrhea Code(s): R19.7 - Diarrhea, unspecified Status: Acute (3) Norovirus Code(s): A08.11 - Acute gastroenteropathy due to [place] agent Status: Acute (4) Nausea & vomiting Code(s): R11.2 - Nausea with vomiting, unspecified Status: Acute (5) Electrolyte abnormality Code(s): E87.8 - Other disorders of electrolyte and fluid balance, not elsewhere classified Status: Acute - Plan 22-year-old female with past medical history of anxiety/depression and scoliosis. Presents to the emergency room with a 3-4-week history of abdominal pain nausea and diarrhea. Surgical history significant for cholecystectomy. Sepsis/abdominal pain with left-sided flank pain. -Febrile, WBC 26+, hypotensive (baseline 130;s systolic), heart rate 100+ at admission (initial BP indicated hypertension however patient was in significant pain) -Flagyl and Cipro due to penicillin allergy - stopped 03/12 due to identification of Noro virus -Urine culture negative. stool cultures indicate norovirus -vancomycin 500 mg p.o. every 6 hours -stopped 03/11 due to C. 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
--- NOTE | 2018-03-17 10:00 | US ---
EXAM DATE: 03/17/2018 12:00 AM EDT AGE/SEX: 22 years / Female INDICATIONS: Right arm swelling. CLINICAL DATA: This is the patient's initial encounter. Patient reports that signs and symptoms have been present for 1 day and indicates a pain score of 3/10. MEDICAL/SURGICAL HISTORY: . Anxiety. Scoliosis. Cholecystectomy. Colonoscopy. COMPARISON: No prior exams available for comparison. FINDINGS: The jugular vein, subclavian, axillary, basilic, brachial veins are patent. There is occlu sive thrombus in the cephalic vein distally in the antecubital fossa region. Other: None. CONCLUSION: 1. Occlusive cephalic vein thrombus. Electronically signed by: Hasmukh Jean MD 03/17/2018 9:59 AM EDT
[2018-03-17 12:01] LABS: Alanine Aminotransferase 62 U/L (10-53); Albumin 3.2 g/dL (3.4-5.0); Anion Gap 5 meq/L (5-15); Aspartate Aminotransferase 48 U/L (15-37); Blood Urea Nitrogen 5 mg/dL (7-18); Calcium 8.3 mg/dL (8.5-10.1); Chloride 108 meq/L (98-107); Glomerular Filtration Rate Greater Than 89 mL/min (>89); Glucose,Random 107 mg/dL (74-106); Phosphorus 2.6 mg/dL (2.5-4.9); Potassium 3.7 meq/L (3.5-5.1); Sodium 140 meq/L (136-145)
[2018-03-17 12:03] LABS: Alkaline Phosphatase 85 U/L (45-117); Total Protein 7.2 g/dL (6.4-8.2)
== END 2018-03-17 15:52 | disposition home or self-care (01) ==
LOC: NEDA 12:58 → NEPD 12:58 → NEPFCDU 22:26 → H7ONC 03-12 11:25 → N04 03-12 17:51
PROVIDERS: ADMIT Hospitalist; ATTEND Hospitalist
PROC: PANENDO (2018-03-15 12:38)
PROC: COLONOS (2018-03-15 12:38)